=== PATIENT | female | born 1955 | race Caucasian/White ===

== ENCOUNTER 2016-07-19 09:32 | Outpatient (CLI) | payer MEDICARE, OTHER | END 2016-07-19 09:33 | disposition home or self-care (01) | DX: L89.899 Pressure ulcer of other site, unspecified stage (principal); Z97.13 Presence of artificial right leg (complete) (partial) ==

== ENCOUNTER 2017-05-03 09:57 | Outpatient (CLI) | payer MEDICARE, OTHER | END 2017-05-03 09:58 | disposition home or self-care (01) | LOC: LAB.R 09:57 | PROVIDERS: ATTEND Nurse Practitioner Family | DX: R31.9 Hematuria, unspecified (principal) | CPT/HCPCS: 87086 ==

== ENCOUNTER 2017-05-03 13:40 | Outpatient (CLI) | payer MEDICARE, OTHER ==
[2017-05-03 17:50] LABS: BASOPHILS % (AUTO) 0.3 %; EOSINOPHILS % (AUTO) 0.4 %; HCT - HEMATOCRIT 39.9 % (37.0-47.0); HGB - HEMOGLOBIN 13.3 g/dL (12.0-16.0); LYMPHOCYTES # (AUTO) 1.1 10^3/uL (1.5-3.5); LYMPHOCYTES % (AUTO) 14.8 %; MEAN CORPUSCULAR HEMOGLOBIN 29.8 pg (27.0-31.0); MEAN CORPUSCULAR HGB CONC 33.2 g/dL (32.0-36.0); MEAN CORPUSCULAR VOLUME 89.5 fL (81.0-99.0); MEAN PLATELET VOLUME 8.8 fL (7.9-10.8); MONOCYTES # (AUTO) 0.4 10^3/uL (0.0-1.0); MONOCYTES % (AUTO) 5.1 %; NEUTROPHILS # (AUTO) 6.2 10^3/uL (1.5-6.6); NEUTROPHILS % (AUTO) 79.4 %; RED BLOOD COUNT 4.45 10^6/uL (4.20-5.40); RED CELL DISTRIBUTION WIDTH 13.2 % (12.0-15.0); UNCORRECTED WHITE BLOOD COUNT 7.8 x10^3/uL; WHITE BLOOD COUNT 7.8 x10^3/uL (4.8-10.8)
[2017-05-03 18:02] LABS: ALBUMIN/GLOBULIN RATIO 1.5 (1.0-2.2); BILIRUBIN,TOTAL 1.5 mg/dL (0.2-1.0); BUN - BLOOD UREA NITROGEN 16 mg/dL (6-20); CALCIUM 9.1 mg/dL (8.5-10.3); CARBON DIOXIDE - CO2 26 mmol/L (21-32); CHLORIDE 103 mmol/L (101-111); CREATININE 0.6 mg/dL (0.4-1.0); GFR - MDRD 101 (>89); GLUCOSE 119 mg/dL (70-100); SODIUM 138 mmol/L (135-145); TOTAL PROTEIN 7.2 g/dL (6.7-8.2)
== END 2017-05-03 13:41 | disposition home or self-care (01) ==
LOC: LAB.F 13:40
PROVIDERS: ATTEND Nurse Practitioner Family
DX: R31.9 Hematuria, unspecified (principal)
CPT/HCPCS: 36415; 80053; 84443; 85025; 87086

== ENCOUNTER 2017-08-15 10:38 | Outpatient (CLI) | payer MEDICARE, OTHER ==
--- NOTE | 2017-08-15 12:51 | XRAY Report ---
RIGHT HIP AND PELVIS: 08/15/2017 CLINICAL INDICATION: Low back pain, right leg prosthesis. FINDINGS: Frontal view of the hips and pelvis and frogleg lateral view of the right hip demonstrate mild right hip osteoarthritis. Postoperative changes of right above-knee amputation are noted, with skin clips present in the soft tissues. There is no evidence of acute fracture or dislocation. IMPRESSION: MILD OSTEOARTHRITIS. TD: 08/15/2017 12:50
== END 2017-08-15 10:39 | disposition home or self-care (01) ==
LOC: DI.S 10:38
PROVIDERS: ATTEND Nurse Practitioner Family
DX: M16.11 Unilateral primary osteoarthritis, right hip (principal); Z89.611 Acquired absence of right leg above knee

== ENCOUNTER 2017-11-18 23:19 | Emergency (ER) | END 2017-11-19 01:47 | disposition home or self-care (01) ==

== ENCOUNTER 2018-01-09 13:27 | Outpatient (CLI) | payer MEDICARE, OTHER ==
--- NOTE | 2018-01-09 17:39 | XRAY Report ---
Procedure Date: 01/09/2018 Accession Number: [id number] / [id number] Procedure: XR - Lumbar Spine 2 View CPT Code: FULL RESULT: EXAM: LUMBOSACRAL SPINE RADIOGRAPHY EXAM DATE: 01/09/2018 02:24 PM. CLINICAL HISTORY: Back pain, lumbar with radiculopathy. COMPARISONS: None. TECHNIQUE: 2 views. FINDINGS: Alignment: 5 mm degenerative anterior subluxation L5 on S1. Accentuation of the lumbar lordosis. Bones: Five ebz-smu-avfalks lumbar vertebral bodies are present. No fractures or bone lesions. Disks: Slight narrowing of the L4-L5 and L5-S1 disks without bony reactive changes. Facets: Marked degenerative changes at the L4-L5 and L5-S1 facets bilaterally. Sacroiliac Joints: Unremarkable. Soft Tissues: Normal. The visualized bowel gas pattern is normal. IMPRESSION: 1. Mild degenerative disk disease L4-L5 with marked degenerative changes at the facets. 2. Grade 1 degenerative anterior subluxation L5-S1. RADIA
== END 2018-01-09 13:28 | disposition home or self-care (01) ==
LOC: DI 13:27
PROVIDERS: ATTEND Physician Assistant Medical
DX: M54.16 Radiculopathy, lumbar region (principal)
CPT/HCPCS: 72100

== ENCOUNTER 2018-02-09 17:22 | Outpatient (CLI) | payer MEDICARE, OTHER ==
--- NOTE | 2018-02-10 17:01 | MRI Report ---
Reason: DEGENERATIVE JOINT DISEASE OF SPINAL FACET JOINT, Procedure Date: 02/09/2018 Accession Number: [id number] / [id number] Procedure: MRI - Lumbar Spine W/O CPT Code: FULL RESULT: EXAM: MRI LUMBAR SPINE WITHOUT CONTRAST EXAM DATE: 02/09/2018 06:02 PM. CLINICAL HISTORY: Degenerative joint disease of spinal facet joint. COMPARISON: 01/09/2018 radiographs. TECHNIQUE: Multiplanar, multisequence T1-weighted and fluid-sensitive sequences of the lumbar spine from T12 to S1 without contrast. Other: None. FINDINGS: Spinal Canal: The conus terminates at L1. The conus medullaris and cauda equina are unremarkable. Alignment: No scoliosis or spondylolisthesis. Bone Marrow: Five zae-dzc-fdszudt lumbar vertebral bodies are assumed. No fractures. Benign hemangiomas in the T12, T11, L2, and L4 vertebral bodies. Disk Levels/Facets: All visualized disks are desiccated from the lower thoracic spine to L5. T9-T10: Moderate disk height loss is present. T10-T11: Unremarkable. T11-T12: A minimal posterior disk protrusion has no neurologic consequence. T12-L1: Unremarkable. L1-L2: Unremarkable. L2-L3: Unremarkable. L3-L4: A minimal posterior disk protrusion causes minimal spinal canal and bilateral foraminal narrowing. L4-L5: Moderate disk height loss is present. A mild posterior disk protrusion causes minimal spinal canal and mild bilateral foraminal narrowing. L5-S1: Moderate bilateral facet osteoarthritis has no neurologic consequence. Musculature: Normal. No edema or fatty atrophy. Other: The partially visualized retroperitoneum is unremarkable. IMPRESSION: 1. Multiple benign hemangiomas. 2. Mild bilateral foraminal narrowing at L4-L5 due to disk protrusions. Comment: The following findings are so common in adults without low back pain that while we report their presence, they must be interpreted with caution and in the context of the clinical situation. (Reference Brendenvik et al, Spine 2001) Prevalence of findings in patients without low back pain: Disk degeneration (any evidence): 92% Disk desiccation/T2 signal loss: 83% Disk height loss: 56% Disk bulge: 64% Disk protrusion: 32% Annular tear/high intensity zone: 38% RADIA
== END 2018-02-09 17:23 | disposition home or self-care (01) ==
LOC: DI 17:22
PROVIDERS: ATTEND Physician Assistant Medical
DX: M51.26 Other intervertebral disc displacement, lumbar region (principal); M51.36 Other intervertebral disc degeneration, lumbar region; M51.24 Other intervertebral disc displacement, thoracic region; M47.897 Other spondylosis, lumbosacral region; M48.061 Spinal stenosis, lumbar region without neurogenic claudication
CPT/HCPCS: 72148

== ENCOUNTER 2018-05-26 19:41 | Emergency (ER) | payer MEDICARE, OTHER ==
[2018-05-26 19:49] VITALS: BP 128/78
[2018-05-26] MEDS ORDERED: oxyCODONE/ACET 5/325 Prepack 4 PO STA (20:13)
[2018-05-26] MEDS ORDERED: GABAPENTIN 100 MG CAPSULE PO STA (20:13)
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
== END 2018-05-26 20:31 | disposition home or self-care (01) ==
LOC: ED 19:41
DX: T87.89 Other complications of amputation stump (principal); G57.91 Unspecified mononeuropathy of right lower limb; Y83.5 Amputation of limb(s) as the cause of abnormal reaction of the patient, or of later complication, without mention of misadventure at the time of the procedure
CPT/HCPCS: 99283; A9270

== ENCOUNTER 2018-09-18 16:10 | Outpatient (CLI) | payer MEDICARE, OTHER ==
[2018-09-18] MEDS ORDERED: GADOBUTROL 7.5 MMOL/7.5 ML VIAL ONE (17:38)
[2018-09-18] MEDS: GADOBUTROL 7.5 MMOL/7.5 ML VIAL IVP ONE (18:14)
--- NOTE | 2018-09-19 11:48 | MRI Report ---
Reason: NEUROMA OF RIGHT LEG, NEUROPATHIC PAIN Procedure Date: 09/18/2018 Accession Number: [id number] / [id number] Procedure: MRI - Femur/Thigh RT W/WO CPT Code: FULL RESULT: EXAM: RIGHT FEMUR/THIGH MRI WITHOUT AND WITH CONTRAST EXAM DATE: 09/18/2018 04:39 PM. CLINICAL HISTORY: Neuroma of right leg, neuropathic pain. COMPARISON: FEMUR 2V RT 11/19/2017 12:08 AM. TECHNIQUE: Multiplanar, multisequence T1-weighted and fluid-sensitive sequences of the thigh before and after administration of intravenous contrast. IV contrast: 4.5 cc Gadavist. Other: None. FINDINGS: Bones: Postsurgical changes of amputation at the level of the proximal femoral diaphysis. I have magnetic susceptibility artifact at the bone stump. No significant marrow edema. Trace amount of contrast enhancement adjacent to the stump. No evidence of osteomyelitis or abscess. Soft tissues: Associated muscle deformities and atrophy. Magnetic susceptibility artifact. No discrete enhancing masses are identified. IMPRESSION: 1. Amputation at the level of the proximal femoral diaphysis. 2. No evidence of cellulitis, abscess or osteomyelitis. 3. No soft tissue masses or abnormal contrast enhancement identified. RADIA
== END 2018-09-18 16:11 | disposition home or self-care (01) ==
LOC: DI 16:10
PROVIDERS: ATTEND Physical Medicine & Rehabilitation
DX: Z89.611 Acquired absence of right leg above knee (principal); D36.13 Benign neoplasm of peripheral nerves and autonomic nervous system of lower limb, including hip; M79.2 Neuralgia and neuritis, unspecified; R52 Pain, unspecified
CPT/HCPCS: 73720; A9585

== ENCOUNTER 2020-03-31 11:18 | Outpatient (CLI) | payer MEDICARE, OTHER ==
[2020-03-31 14:40] LABS: BASOPHILS % (AUTO) 0.8 %; EOSINOPHILS # (AUTO) 0.1 10^3/uL (0.0-0.7); EOSINOPHILS % (AUTO) 1.7 %; HGB - HEMOGLOBIN 13.8 g/dL (12.0-16.0); LYMPHOCYTES # (AUTO) 1.3 10^3/uL (1.5-3.5); LYMPHOCYTES % (AUTO) 36.5 %; MEAN CORPUSCULAR HEMOGLOBIN 29.2 pg (27.0-31.0); MEAN CORPUSCULAR HGB CONC 32.5 g/dL (32.0-36.0); MEAN CORPUSCULAR VOLUME 89.8 fL (81.0-99.0); MEAN PLATELET VOLUME 9.8 fL (7.9-10.8); MONOCYTES # (AUTO) 0.3 10^3/uL (0.0-1.0); MONOCYTES % (AUTO) 7.7 %; NEUTROPHILS # (AUTO) 1.9 10^3/uL (1.5-6.6); PLT - PLATELET COUNT 294 10^3/uL (130-450); RED BLOOD COUNT 4.72 10^6/uL (4.20-5.40); RED CELL DISTRIBUTION WIDTH 13.2 % (12.0-15.0); WHITE BLOOD COUNT 3.6 x10^3/uL (4.8-10.8)
[2020-03-31 15:00] LABS: ALBUMIN 4.5 g/dL (3.2-5.5); ALBUMIN/GLOBULIN RATIO 1.5 (1.0-2.2); BILIRUBIN,TOTAL 1.9 mg/dL (0.2-1.0); CALCIUM 9.8 mg/dL (8.5-10.3); CREATININE 0.6 mg/dL (0.4-1.0); TOTAL PROTEIN 7.6 g/dL (6.7-8.2)
== END 2020-03-31 11:19 | disposition home or self-care (01) ==
LOC: LAB.S 11:18
PROVIDERS: ATTEND Internal Medicine
DX: R11.2 Nausea with vomiting, unspecified (principal); L65.9 Nonscarring hair loss, unspecified; R31.9 Hematuria, unspecified
CPT/HCPCS: 36415; 80053; 82728; 84443; 85025

== ENCOUNTER 2020-08-05 09:57 | Outpatient (CLI) | payer MEDICARE, OTHER ==
--- NOTE | 2020-08-06 13:27 | Mammography Report ---
BILATERAL DIGITAL SCREENING MAMMOGRAM 3D/2D WITH EXAGGERATED CC: 08/05/2020 CLINICAL: Routine screening. Comparison is made to exams dated: 06/12/2013 mammogram and 06/25/2009 mammogram - [facility]. The tissue of both breasts is heterogeneously dense. This may lower the sensitivity of ma mmography. There is a benign calcification in both breasts. No significant masses, calcifications, or other findings are seen in either breast. There has been no significant interval change. IMPRESSION: BENIGN There is no mammographic evidence of malignancy. A 1 year screening mammogram is recommended. This exam was interpreted at Station ID: [id number]. NOTE: For mammograms, a report in lay terms will be sent to the patient. Approximately 15% of breast malignancies will not be visualized mammographically. In the management of a palpable breast mass, a negative mammogram must not discourage biopsy of a clinically suspicious lesion. Electronically Signed By: Jay Lackey M.D. ddp/penrad:08/05/2020 10:44:41 ACR BI-RADS Category 2: Benign Finding(s) 3342F PARENCHYMAL PATTERN: (D) - The breast(s) demonstrate(s) heterogeneously dense fibroglandular parenchy ma. BI-RADS CATEGORY: (2) - 2 RECOMMENDATION: (ANNUAL) - Recommend routine annual screening mammography. [id number] 1 year screening LATERALITY: (B)
== END 2020-08-05 09:58 | disposition home or self-care (01) ==
LOC: DI.S 09:57
PROVIDERS: ATTEND Internal Medicine
DX: Z12.31 Encounter for screening mammogram for malignant neoplasm of breast (principal)

== ENCOUNTER 2020-11-17 11:24 | Day surgery (SDC) | payer MEDICARE, OTHER ==
[2020-11-17] MEDS ORDERED: LACTATED RINGERS 1,000 ML IV ONE ×2 (12:02→13:30)
--- NOTE | 2020-11-17 12:16 | ANESTHESIA ---
Pre-Anesthesia VS, & Labs - Diagnosis family hx of colon CA - Procedure Colonoscopy Vital Signs: Temp Pulse Resp BP Pulse Ox 36.9 C 73 18 118/82 H 100 11/17/20 11:44 11/17/20 11:44 11/17/20 11:44 11/17/20 11:44 11/17/20 11:44 Height: 5 ft 3 in Weight (kg): 49 kg Body Mass Index: 19.1 BMI Classification: Healthy weight - NPO >8 hours - Is Patient ?: No Home Medications and Allergies Home Medications: Ambulatory Orders Acetaminophen [Tylenol] 325 mg PO DAILY 11/17/20 Duloxetine HCl 60 mg PO DAILY 10/31/19 Acetaminophen [Tylenol] 325 mg PO DAILY 11/17/20 Allergies/Adverse Reactions: Allergies Allergy/AdvReac Type Severity Reaction Status Date / Time No Known Drug Allergies Allergy Verified 11/17/20 12:03 Anes History & Medical History - Anesthetic History Anesthesia Complications: reports: No previous complications Family history of Anesthesia Complications: Denies Family history of Malignant Hyperthermia: Denies - Medical History Cardiovascular: reports: None Pulmonary: reports: None Gastrointestinal: reports: None Urinary: reports: None Neuro: reports: None Musculoskeletal: reports: Other Endocrine/Autoimmune: reports: None Blood Disorders: reports: None Skin: reports: None Smoking Status: Never smoker - Surgical History General: reports: Bowel surgery, Colonoscopy, Other Orthopedic: reports: Amputation, Other Dermatologic: reports: Skin grafts Exam General: Alert, Oriented x3, Cooperative Dental: WNL Mouth Openin Fingerbreadth Mallampati classification: I Thyromental Distance: 4-6 cm Respiratory: Lungs clear Cardiovascular: Regular rate Plan Anesthesia Type: Total IV Consent for Procedure(s) Verified and Reviewed: Yes Code Status: Attempt Resuscitation ASA classification: 2-Mild systemic disease Is this case an emergency?: No
[2020-11-17] MEDS ORDERED: LIDOCAINE-MPF 2% 5 ML VIAL ONE (12:46)
[2020-11-17] MEDS ORDERED: PROPOFOL 200 MG/20 ML VIAL IVP ONE ×2 (12:46→12:48)
[2020-11-17 13:53] VITALS: BP 107/57
--- NOTE | 2020-11-17 14:12 | ANESTHESIA POST OP EVALUATION ---
Anesthesia Post Eval - Post Anesthesia Eval Vitals: Last Vital Signs Temp 36.0 C L 11/17/20 13:52 Pulse 70 11/17/20 13:52 Resp 16 11/17/20 13:52 BP 107/57 L 11/17/20 13:52 Pulse Ox 94 11/17/20 13:52 CV Function Including HR & BP: Stable Pain Control: Satisfactory Nausea & Vomiting: Negative Mental Status: Baseline Respiratory Status: Airway Patent Hydration Status: Satisfactory Anesthesia Complications: None
== END 2020-11-17 11:25 | disposition home or self-care (01) ==
LOC: SDS 11:24
PROVIDERS: ATTEND Surgery
DX: Z12.11 Encounter for screening for malignant neoplasm of colon (principal); K57.30 Diverticulosis of large intestine without perforation or abscess without bleeding; K64.8 Other hemorrhoids; K64.4 Residual hemorrhoidal skin tags; Z80.0 Family history of malignant neoplasm of digestive organs; Z92.83 Personal history of failed moderate sedation; Z86.010 Personal history of colon polyps
CPT/HCPCS: G0105; J7120

== ENCOUNTER 2020-11-17 19:53 | Inpatient (IN) | payer MEDICARE, OTHER ==
[2020-11-17] MEDS ORDERED: SODIUM CHLORIDE 0.9% 1,000 ML IV STA ×2 (20:40→22:39)
[2020-11-17] MEDS ORDERED: HYDROmorphone 1 MG/ML CARPUJECT IVP STA (20:40)
[2020-11-17 20:43] LABS: BASOPHILS % (AUTO) 0.2 %; EOSINOPHILS % (AUTO) 2.4 %; HCT - HEMATOCRIT 37.7 % (37.0-47.0); HGB - HEMOGLOBIN 13.5 g/dL (12.0-16.0); LYMPHOCYTES % (AUTO) 5.3 %; MEAN CORPUSCULAR HEMOGLOBIN 31.5 pg (27.0-31.0); MEAN CORPUSCULAR HGB CONC 35.8 g/dL (32.0-36.0); MEAN CORPUSCULAR VOLUME 87.9 fL (81.0-99.0); MEAN PLATELET VOLUME 9.3 fL (7.9-10.8); MONOCYTES % (AUTO) 4.5 %; NEUTROPHILS % (AUTO) 87.3 %; PLT - PLATELET COUNT 282 10^3/uL (130-450); RED BLOOD COUNT 4.29 10^6/uL (4.20-5.40); WHITE BLOOD COUNT 9.8 x10^3/uL (4.8-10.8)
[2020-11-17] MEDS ORDERED: ONDANSETRON 4 MG/2 ML VIAL IVP STA (20:48)
[2020-11-17] MEDS ORDERED: IOVERSOL 320 100 ML VIAL IVP ONE (20:50)
[2020-11-17] MEDS ORDERED: ONDANSETRON 4 MG/2 ML VIAL ONE (20:51)
[2020-11-17 20:54] LABS: ABNORMAL LYMPHS % (MANUAL) 0 %; SLIDE REVIEW? Indicated
[2020-11-17 20:56] LABS: ALBUMIN 4.6 g/dL (3.2-5.5); ALBUMIN/GLOBULIN RATIO 1.8 (1.0-2.2); BILIRUBIN,TOTAL 2.2 mg/dL (0.2-1.0); CALCIUM 9.9 mg/dL (8.5-10.3); CREATININE 0.6 mg/dL (0.4-1.0); POTASSIUM 2.9 mmol/L (3.5-5.0); TOTAL PROTEIN 7.1 g/dL (6.7-8.2)
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
[2020-11-17 21:26] LABS: BAND NEUTROPHILS % (MANUAL) 8 %; EOSINOPHILS # (MANUAL) 0.2 10^3/uL (0-0.7); LYMPHOCYTES # (MANUAL) 0.4 10^3/uL (1.5-3.5); LYMPHOCYTES % (MANUAL) 4 %; MONOCYTES # (MANUAL) 0.4 10^3/uL (0.0-1.0); NEUTROPHILS # (MANUAL) 8.8 10^3/uL (1.5-6.6)
[2020-11-17 21:34] LABS: DIFFERENTIAL COMMENT MANUAL DIFFERENTIAL; PLATELET ESTIMATE, MANUAL NORMAL (130-450,000) (NORMAL); PLATELET MORPHOLOGY NORMAL APPEARANCE (NORMAL); RBC MORPHOLOGY (MULTIPLE) NORMAL APPEARANCE (NORMAL); WBC MORPHOLOGY (MULTIPLE) 2+ TOXIC GRANULATION (NORMAL)
[2020-11-17] MEDS: IOVERSOL 320 100 ML VIAL IVP ONE (21:50)
[2020-11-17 22:00] LABS: BILIRUBIN,URINE NEGATIVE (NEGATIVE); GLUCOSE, URINE (UA) NEGATIVE (NEGATIVE); KETONES,URINE (UA) 15 mg/dL (NEGATIVE); LEUKOCYTE ESTERASE, URINE NEGATIVE (NEGATIVE); NITRITE,URINE NEGATIVE (NEGATIVE); OCCULT BLOOD,URINE NEGATIVE (NEGATIVE); PROTEIN,URINE NEGATIVE (NEGATIVE); UROBILINOGEN,URINE 0.2 (NORMAL) E.U./dL (NORMAL)
[2020-11-17 22:04] LABS: CLARITY,URINE HAZY (CLEAR)
[2020-11-17 22:06] LABS: AMORPHOUS SEDIMENT,UR Rare /LPF; BACTERIA,URINE None Seen /HPF (None Seen); RBC,URINE None Seen /HPF (0-5); SQUAMOUS EPITHELIAL CELL,UR NONE SEEN (<= Few); WBC,URINE 0-3 /HPF (0-5)
--- NOTE | 2020-11-17 22:15 | CT Report ---
PROCEDURE: Abdomen/Pelvis W INDICATIONS: lower abdominla pain after colonoscopy CONTRAST: IV CONTRAST: Optiray 320 ml: 100 PO CONTRAST: *NO PO CONTRAST TECHNIQUE: After the administration of IV contrast, 5 mm thick sections acquired from the diaphragms to the symp hysis. 5 mm thick coronal and sagittal reformats were acquired. For radiation dose reduction, the f ollowing was used: automated exposure control, adjustment of mA and/or kV according to patient size. COMPARISON: CT abdomen pelvis 11/02/2019 FINDINGS: Image quality: Excellent. ABDOMEN: Lung bases: Lung bases are clear. Heart size is normal. Solid organs: Liver and spleen are normal in size and enhancement. Gallbladder is unremarkable Surendra iary system is non dilated. Pancreas enhances normally. No adrenal nodules. Kidneys demonstrate no rmal size and enhancement, without hydronephrosis. Peritoneum and bowel: Bowel loops are nonobstructive. There is mild scattered free fluid within the dependent pelvis. There is no fluid or inflammatory change within the hernia. Bowel loops within the lower pelvis are collapsed. No free air. Nodes and vessels: No retroperitoneal or mesenteric adenopathy by size criteria. Aorta and inferior vena cava are normal in size. Miscellaneous: Prominently dilated bowel containing ventral hernia with rectus diastases measuring ap proximately 8.4 cm. It is noted on prior exam, ventral hernia was fat-containing only. PELVIS: Genitourinary: Bladder wall thickness is normal. Miscellaneous: No inguinal hernias or adenopathy. Bones: No suspicious bony lesions. No vertebral body compression fractures. IMPRESSION: 1. Interval development of bowel containing ventral hernia with significantly dilated loop of bowel. There is no inflammatory change or fluid within the hernia/adjacent to the herniated bowel loop. Rec ommend correlation to viability to reduce hernia as incarceration cannot be definitively excluded giv en dilated loop of bowel. Reviewed by: Rhina Balderrama MD on 11/17/2020 10:14 PM PDT Approved by: Rhina Balderrama MD on 11/17/2020 10:14 PM PDT Station ID: [id number]
[2020-11-17] MEDS: POTASSIUM CHLOR 10 MEQ/100 ML 10 MEQ/100 ML BAG IV SCH (22:40)
[2020-11-17 23:45] LABS: B. PARAPERTUSSIS- RESP PCR PAN NOT DETECTED; B. PERTUSSIS- RESP PCR PANEL NOT DETECTED; C. PNEUMONIAE- RESP PCR PANEL NOT DETECTED; CORONAVIRUS 229E-RESP PCR NOT DETECTED; CORONAVIRUS HKU1-RESP PCR NOT DETECTED; CORONAVIRUS NL63-RESP PCR NOT DETECTED; CORONAVIRUS OC43-RESP PCR NOT DETECTED; HUMAN METAPNEUMOVIRUS NOT DETECTED; INFLUENZA A- RESP PCR PANEL NOT DETECTED; INFLUENZA B - RESP PCR PANEL NOT DETECTED; M. PNEUMONIAE- RESP PCR PANEL NOT DETECTED; PARAINFLUENZA VIRUS 1 NOT DETECTED; PARAINFLUENZA VIRUS 2 NOT DETECTED; PARAINFLUENZA VIRUS 3 NOT DETECTED; PARAINFLUENZA VIRUS 4 NOT DETECTED; RHINOVIRUS/ENTEROVIRUS NOT DETECTED; RSV- RESP PCR PANEL NOT DETECTED; SARS-CoV-2 -RESP PCR PANEL NOT DETECTED
[2020-11-17] MEDS ORDERED: ONDANSETRON 4 MG/2 ML VIAL IVP PRN (23:53)
[2020-11-17] MEDS ORDERED: SODIUM CHLORIDE FLUSH 0.9% 10 ML SYRINGE IVP PRN (23:53)
[2020-11-18] MEDS: D5NS W/20 MEQ KCL 1,000 ML IV SCH ×3 (00:49→21:47)
[2020-11-18] MEDS: POTASSIUM CHLOR 10 MEQ/100 ML 10 MEQ/100 ML BAG IV SCH ×3 (00:49→03:45)
[2020-11-18] MEDS: methocarbamoL 500 MG TABLET PO SCH ×5 (00:54→23:53)
[2020-11-18] MEDS: SODIUM CHLORIDE FLUSH 0.9% 10 ML SYRINGE IVP SCH ×4 (02:18→23:59)
[2020-11-18] MEDS: PANTOPRAZOLE 40 MG VIAL IVP SCH (06:15)
[2020-11-18] MEDS ORDERED: PHENOL THROAT SPRAY 177 ML MM PRN (06:23)
--- NOTE | 2020-11-18 07:51 | PHARMACY PROGRESS NOTE ---
- Best Possible Medication History Admit Date and Time: 11/17/20 3519 Processed by: Nursing Medication History completed: Yes Patient Interview: Completed (MED REC COMPLETED BY NURSING) As the person ultimately responsible for medication therapy, providers are able to order a medication from an existing home medication list in [facility] via the "Reconcile Routine" prior to Confirmation of that medication by support group manager. Such practice is discouraged except when the physician, in their clinical judgment, deems that a medical need exists for a medication without regard to previous use.
--- NOTE | 2020-11-18 08:30 | XRAY Report ---
PROCEDURE: Chest for Line Placement INDICATIONS: Line placement NGT TECHNIQUE: One view of the chest was acquired. COMPARISON: CT abdomen/pelvis one day ago. This includes the lung bases FINDINGS: Surgical changes and devices: Esophagogastric tube extends into the gastric body and coils towards th e fundus. Side-port is below the EG junction.. Lungs and pleura: No pleural effusions or pneumothorax. Lungs are clear. Mediastinum: Mediastinal contours appear normal. Heart size is normal. Bones and chest wall: No suspicious bony lesions. Overlying soft tissues appear unremarkable. IMPRESSION: Esophagogastric tube positioning normal. Reviewed by: Leonardo Parkinson MD on 11/18/2020 8:28 AM PDT Approved by: Leonardo Parkinson MD on 11/18/2020 8:28 AM PDT Station ID: [id number]
[2020-11-18] MEDS: ENOXAPARIN 40 MG/0.4 ML SYRINGE SUBQ SCH (09:17)
[2020-11-18] MEDS: ACETAMINOPHEN 1,000 MG/100 ML 100 ML IV PRN (10:46)
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
--- NOTE | 2020-11-18 11:42 | OPERATIVE REPORT ---
Operative Report - General Admit Date: 11/17/20
[2020-11-18 11:49] LABS: BASOPHILS % (AUTO) 0.1 %; EOSINOPHILS % (AUTO) 1.9 %; HCT - HEMATOCRIT 38.7 % (37.0-47.0); HGB - HEMOGLOBIN 13.1 g/dL (12.0-16.0); LYMPHOCYTES % (AUTO) 10.9 %; MEAN CORPUSCULAR HEMOGLOBIN 31.1 pg (27.0-31.0); MEAN CORPUSCULAR HGB CONC 33.9 g/dL (32.0-36.0); MEAN CORPUSCULAR VOLUME 91.9 fL (81.0-99.0); MEAN PLATELET VOLUME 9.3 fL (7.9-10.8); MONOCYTES % (AUTO) 5.5 %; NEUTROPHILS % (AUTO) 81.5 %; PLT - PLATELET COUNT 234 10^3/uL (130-450); RED BLOOD COUNT 4.21 10^6/uL (4.20-5.40); RED CELL DISTRIBUTION WIDTH 12.7 % (12.0-15.0); WHITE BLOOD COUNT 7.3 x10^3/uL (4.8-10.8)
[2020-11-18 11:54] LABS: ABNORMAL LYMPHS % (MANUAL) 0 %
[2020-11-18 12:07] LABS: ALBUMIN 3.6 g/dL (3.2-5.5); ALBUMIN/GLOBULIN RATIO 1.5 (1.0-2.2); ALKALINE PHOSPHATASE 70 IU/L (42-121); ALT ALANINE AMINOTRANSFERASE 16 IU/L (10-60); AST ASPARTATE AMINOTRANSFERASE 20 IU/L (10-42); BUN - BLOOD UREA NITROGEN < 5 mg/dL (6-20); CALCIUM 9.1 mg/dL (8.5-10.3); CARBON DIOXIDE - CO2 19 mmol/L (21-32); CHLORIDE 106 mmol/L (101-111); CREATININE 0.4 mg/dL (0.4-1.0); GFR - MDRD 159 (>89); GLUCOSE 140 mg/dL (70-100); SODIUM 137 mmol/L (135-145)
[2020-11-18 12:26] LABS: BAND NEUTROPHILS % (MANUAL) 6 %; BASOPHILS # (MANUAL) 0.1 10^3/uL (0-0.1); BASOPHILS % (MANUAL) 1 %; DIFFERENTIAL COMMENT MANUAL DIFFERENTIAL; LYMPHOCYTES # (MANUAL) 0.7 10^3/uL (1.5-3.5); LYMPHOCYTES % (MANUAL) 9 %; NEUTROPHILS # (MANUAL) 6.6 10^3/uL (1.5-6.6); PLATELET ESTIMATE, MANUAL NORMAL (130-450,000) (NORMAL); PLATELET MORPHOLOGY NORMAL APPEARANCE (NORMAL); RBC MORPHOLOGY (MULTIPLE) NORMAL APPEARANCE (NORMAL); WBC MORPHOLOGY (MULTIPLE) NORMAL APPEARANCE (NORMAL)
[2020-11-18] MEDS ORDERED: IOVERSOL 320 100 ML VIAL IVP ONE (13:35)
[2020-11-18] MEDS ORDERED: IOPAMIDOL-300 50 ML VIAL ONE (13:35)
--- NOTE | 2020-11-18 16:23 | CT Report ---
PROCEDURE: Abdomen/Pelvis W INDICATIONS: evalute for resolution of sbo CONTRAST: IV CONTRAST: Optiray 320 ml: 100 PO CONTRAST: Isovue 300 ml50 TECHNIQUE: After the administration of intravenous and oral contrast, 5 mm thick sections acquired from the diap hragms to the symphysis. 5 mm thick coronal and sagittal reformats were acquired. For radiation dos e reduction, the following was used: automated exposure control, adjustment of mA and/or kV accordin g to patient size. COMPARISON: CT abdomen pelvis 11/17/2020, 11/02/19. FINDINGS: Image quality: Excellent. ABDOMEN: Lung bases: There is dependent atelectasis in the lung bases. Heart size is normal. A nasogastric tub e extends into the stomach. Solid organs: Evaluation of the liver demonstrates no focal hepatic lesions. Gallbladder appears wit hin normal limits without calcified gallstones. Biliary system is non dilated. The spleen is normal in size. Pancreas enhances normally without peripancreatic fat stranding or fluid collections. No ad renal nodules. Kidneys demonstrate no hydronephrosis. There is a right renal cyst redemonstrated. Peritoneum and bowel: There are scattered air-fluid levels throughout the small bowel without a focal transition point or definite abnormal dilatation to suggest obstruction. Oral contrast extends into the distal ileum. There is mild residual bowel wall thickening within the terminal ileum, decreased f rom the prior study compatible with a mild residual enteritis. There is also mild residual segmental wall thickening of the descending and sigmoid colon, also decreased from the prior study, suggestive of a resolving colitis. There is a small amount of intraperineal free fluid with mild peritoneal enha ncement. No free air. Nodes and vessels: No retroperitoneal or mesenteric adenopathy by size criteria. Aorta and inferior vena cava are normal in size. Miscellaneous: There is a widemouth midline ventral abdominal hernia redemonstrated measuring approxi mately 8.4 cm in transverse dimension and 11.4 cm in craniocaudal dimension. There is partial herniat ion of a few small bowel loops and a segment of the transverse colon. No evidence of associated bowel obstruction or strangulation. PELVIS: Genitourinary: Bladder wall thickness is normal. Miscellaneous: No inguinal hernias or adenopathy. There is a partially visualized amputation throug h the level of the proximal right femoral shaft. Associated asymmetric atrophy of the right lower ext remity and pelvic musculature are demonstrated. Bones: No suspicious bony lesions. No vertebral body compression fractures. IMPRESSION: 1. Wide mouth ventral abdominal hernia redemonstrated containing loops of small and large bowel. No e vidence of associated bowel obstruction or strangulation. 2. Decreased small bowel and distal colonic wall thickening compatible with a resolving enteritis and colitis. 3. Small amount of intraperitoneal free fluid is nonspecific but likely reactive. Reviewed by: Jay Lackey MD on 11/18/2020 4:22 PM PDT Approved by: Jay Lackey MD on 11/18/2020 4:22 PM PDT Station ID: [id number]
[2020-11-18] MEDS: HYDROmorphone 0.5 MG/0.5 ML SYRINGE IVP PRN ×3 (18:38→23:58)
[2020-11-18] MEDS: IOVERSOL 320 100 ML VIAL IVP ONE (19:18)
[2020-11-18] MEDS ORDERED: IOPAMIDOL-300 50 ML VIAL PO ONE (19:19)
[2020-11-19] MEDS ORDERED: CARBOXYMETHYLCELLULOSE OPHTH DROPS EACHEYE PRN (00:08)
[2020-11-19] MEDS: ACETAMINOPHEN 1,000 MG/100 ML 100 ML IV PRN ×3 (01:22→15:40)
[2020-11-19] MEDS: D5NS W/20 MEQ KCL 1,000 ML IV SCH ×3 (05:27→13:19)
[2020-11-19] MEDS: methocarbamoL 500 MG TABLET PO SCH ×2 (05:27→12:22)
[2020-11-19] MEDS: SODIUM CHLORIDE FLUSH 0.9% 10 ML SYRINGE IVP SCH ×2 (05:32→16:45)
[2020-11-19] MEDS: HYDROmorphone 0.5 MG/0.5 ML SYRINGE IVP PRN ×2 (05:32→13:17)
[2020-11-19] MEDS: PANTOPRAZOLE 40 MG VIAL IVP SCH (05:33)
[2020-11-19 05:35] LABS: BASOPHILS % (AUTO) 0.3 %; EOSINOPHILS % (AUTO) 0.4 %; HCT - HEMATOCRIT 33.6 % (37.0-47.0); HGB - HEMOGLOBIN 11.2 g/dL (12.0-16.0); LYMPHOCYTES # (AUTO) 0.9 10^3/uL (1.5-3.5); LYMPHOCYTES % (AUTO) 12.8 %; MEAN CORPUSCULAR HEMOGLOBIN 30.7 pg (27.0-31.0); MEAN CORPUSCULAR HGB CONC 33.3 g/dL (32.0-36.0); MEAN CORPUSCULAR VOLUME 92.1 fL (81.0-99.0); MEAN PLATELET VOLUME 9.8 fL (7.9-10.8); MONOCYTES # (AUTO) 0.4 10^3/uL (0.0-1.0); MONOCYTES % (AUTO) 5.8 %; NEUTROPHILS # (AUTO) 5.4 10^3/uL (1.5-6.6); NEUTROPHILS % (AUTO) 80.6 %; PLT - PLATELET COUNT 207 10^3/uL (130-450); RED BLOOD COUNT 3.65 10^6/uL (4.20-5.40); WHITE BLOOD COUNT 6.7 x10^3/uL (4.8-10.8)
[2020-11-19 05:46] LABS: ALBUMIN 3.1 g/dL (3.2-5.5); ALBUMIN/GLOBULIN RATIO 1.6 (1.0-2.2); ALKALINE PHOSPHATASE 62 IU/L (42-121); ALT ALANINE AMINOTRANSFERASE 13 IU/L (10-60); AST ASPARTATE AMINOTRANSFERASE 14 IU/L (10-42); BILIRUBIN,TOTAL 1.6 mg/dL (0.2-1.0); BUN - BLOOD UREA NITROGEN < 5 mg/dL (6-20); CALCIUM 8.1 mg/dL (8.5-10.3); CARBON DIOXIDE - CO2 23 mmol/L (21-32); CHLORIDE 107 mmol/L (101-111); CREATININE 0.4 mg/dL (0.4-1.0); GFR - MDRD 159 (>89); GLUCOSE 146 mg/dL (70-100); MAGNESIUM 1.8 mg/dL (1.7-2.8); PHOSPHORUS 1.9 mg/dL (2.5-4.6); POTASSIUM 3.6 mmol/L (3.5-5.0); SODIUM 135 mmol/L (135-145); TOTAL PROTEIN 5.1 g/dL (6.7-8.2)
[2020-11-19] MEDS: ENOXAPARIN 40 MG/0.4 ML SYRINGE SUBQ SCH (09:14)
[2020-11-19] MEDS ORDERED: polyethylene glycoL 3350 17 GM PACKET PO SCH (12:00)
[2020-11-19] MEDS ORDERED: SENNA 8.6 MG TABLET PO SCH (12:00)
[2020-11-19] MEDS ORDERED: DOCUSATE SODIUM 250 MG CAPSULE PO SCH (12:00)
--- NOTE | 2020-11-19 17:54 | Discharge Plan ---
Discharge Plan Problem Reviewed?: Yes Disposition: Home, Self Care Condition: Good Diet: Regular Activity Restrictions: Activity as Tolerated Shower Restrictions: Yes Driving Restrictions: Yes Care Goals: Return to ER for recurrent symptoms. Plan for elective hernia repair in the next month. No Smoking: If you smoke, Please STOP! Call for help. Follow-up with: Jimmy Man MD [Provider Admit Priv/Credential] -
[2020-11-20 08:30] VITALS: BP 120/75
--- NOTE | 2020-11-20 08:37 | PROVIDER PROGRESS NOTE ---
Progress Note Subjective 65-year-old male hospital day #2 for high-grade small bowel obstruction. Repeat CT obtained see results below. Patient overall feels much better. Concern for infraumbilical hernia as a possible recurrent source and eager for consideration of repair Objective Afebrile hemodynamically acceptable General Appearance: positive: No acute distress Eyes Bilateral: positive: Normal inspection ENT: positive: ENT inspection nml Neck: positive: Nml inspection Respiratory: positive: Chest non-tender, No respiratory distress, Breath sounds nml. negative: Wheezes, Rales, Rhonchi Cardiovascular: positive: Regular rate & rhythm Abdomen: positive: No distention, Other. negative: Guarding, Rebound; infraumbilical hernia reducible with no tenderness Extremities: positive: Non-tender, Full ROM, Nml appearance Neurologic/Psychiatric: positive: Oriented x3, CN's nml (2-12) Repeat CT abdomen pelvis Impression: 1. Widemouth ventral abdominal hernia redemonstrated containing loops of small and large bowel. No evidence of associated bowel obstruction strangulation. 2. Decreased small bowel and distal colonic wall thickening compatible with a resolving enteritis and colitis 3. Small amount of intraperitoneal free air is nonspecific but likely reactive: Impression/Plan 65-year-old female with history of trauma laparotomy remotely high-grade small bowel obstruction within the last year failing nonoperative management who underwent diagnostic laparoscopy and mini laparotomy. On table decompression. No bowel resection. Developed incisional infraumbilical hernia. Otherwise has had an overall significant improvement in quality of life. Equilibration of historically erratic bowel function. Positive flatus currently. Will remove NG tube. Will attempt trial of oral intake. With regard to infraumbilical hernia we can consider outpatient elective repair possibly laparoscopic intervention. More likely this will require an open laparotomy with adhesiolysis and retrorectus repair with possible component separation and mesh placement preperitoneal. As it relates to possible operative intervention, risk and benefits discussed. Patient was advised of the significant risks of heart attack stroke and fr om anesthesia as well as pulmonary embolism. These were amongst others. Moreover the patient was also advised of the risk of recurrent hernia and infectious complications as it relates to implanted mesh. Please note that voice recognition software was used to transcribe this note and inadvertent errors might persist in spite of review and editing. I am obliged to you for your attention. I am thankful to you for allowing me to participate with you in this care of this patient.
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
== END 2020-11-19 18:26 | disposition home or self-care (01) | DRG 395 ==
LOC: ED 19:53 → MS2 23:53 → OBSVTOIN 11-18 22:06
PROVIDERS: ADMIT Surgery; ATTEND Surgery
DX: K43.0 Incisional hernia with obstruction, without gangrene (principal); E87.1 Hypo-osmolality and hyponatremia; E87.6 Hypokalemia; K52.9 Noninfective gastroenteritis and colitis, unspecified; F32.9 Major depressive disorder, single episode, unspecified; Z12.11 Encounter for screening for malignant neoplasm of colon; K57.30 Diverticulosis of large intestine without perforation or abscess without bleeding; K64.8 Other hemorrhoids; K64.4 Residual hemorrhoidal skin tags; Z80.0 Family history of malignant neoplasm of digestive organs; Z92.83 Personal history of failed moderate sedation; Z86.010 Personal history of colon polyps
CPT/HCPCS: 36415; 71045; 74177; 80053; 81001; 83605; 83690; 83735; 84100; 85025; 87631; 96365; 96366; 96367; 96375; 96376; 99283; 99285; A9270; G0105; G0378; J0131; J1170; J1650; J7120; Q9967; 0202U; 81003; 87086

== ENCOUNTER 2021-07-29 11:23 | Inpatient (IN) | payer MEDICARE, OTHER ==
[~2021-07-29 11:23] MED LIST: KETOROLAC 0.45% OPHTH DROPS ONE
[2021-07-29] MEDS ORDERED: CEFAZOLIN SODIUM IN 0.9 % NACL 2 GM/50 ML BAG IV ONE (11:36)
[2021-07-29] MEDS ORDERED: LACTATED RINGERS 1,000 ML IV ONE ×2 (12:12→17:18)
--- NOTE | 2021-07-29 12:44 | ANESTHESIA ---
Pre-Anesthesia VS, & Labs - Diagnosis incisional hernia - Procedure open incisional hernia repair Vital Signs: Temp Pulse Resp BP Pulse Ox 36.9 C 70 12 131/86 H 100 07/29/21 11:48 07/29/21 11:48 07/29/21 11:48 07/29/21 11:48 07/29/21 11:48 Height: 5 ft 2.5 in Weight (kg): 49 kg Body Mass Index: 19.4 BMI Classification: Healthy weight - NPO >8 hours - Is Patient ?: No - Lab Results Lab results reviewed: Yes Home Medications and Allergies Duloxetine HCl 60 mg PO DAILY 10/31/19 Acetaminophen [Tylenol] 325 mg PO DAILY 11/17/20 Allergies/Adverse Reactions: Allergies Allergy/AdvReac Type Severity Reaction Status Date / Time No Known Drug Allergies Allergy Verified 11/17/20 20:01 Anes History & Medical History - Anesthetic History Anesthesia Complications: reports: Other-see comment (memory loss) Family history of Anesthesia Complications: Denies Family history of Malignant Hyperthermia: Denies - Medical History Cardiovascular: reports: None Pulmonary: reports: None Gastrointestinal: reports: Hemorrhoids, Other Urinary: reports: None Neuro: reports: Other (memory loss) Musculoskeletal: reports: Other Endocrine/Autoimmune: reports: None Blood Disorders: reports: None Skin: reports: None Smoking Status: Never smoker - Surgical History General: reports: Bowel surgery, Colonoscopy, Other Orthopedic: reports: Amputation, Other Dermatologic: reports: Skin grafts Exam General: Alert, Oriented x3, Cooperative, No acute distress Dental: Poor dentition Mouth Openin Fingerbreadth Neck Mobility: Normal Mallampati classification: II Plan Anesthesia Type: General, Transverse Abdominis Plane (TAP) Block Regional Block: Per Surgeon's request for Post Op pain control Consent for Procedure(s) Verified and Reviewed: Yes Code Status: Attempt Resuscitation ASA classification: 3-Severe systemic disease Is this case an emergency?: No
[2021-07-29] MEDS ORDERED: fentaNYL 100 MCG/2 ML VIAL ONE (14:07)
[2021-07-29] MEDS ORDERED: LIDOCAINE-MPF 2% 5 ML VIAL ONE (14:08)
[2021-07-29] MEDS ORDERED: PROPOFOL 200 MG/20 ML VIAL IVP ONE (14:08)
[2021-07-29] MEDS ORDERED: ONDANSETRON 4 MG/2 ML VIAL ONE (14:08)
[2021-07-29] MEDS ORDERED: DEXAMETHASONE 4 MG/ML VIAL ONE (14:08)
[2021-07-29] MEDS ORDERED: ROCURONIUM 50 MG/5 ML VIAL ONE (14:08)
[2021-07-29] MEDS ORDERED: METOCLOPRAMIDE 10 MG/2 ML VIAL IVP PRN (14:29)
[2021-07-29] MEDS ORDERED: fentaNYL 100 MCG/2 ML VIAL IVP PRN (14:29)
[2021-07-29] MEDS ORDERED: MORPHINE 2 MG/ML CARPUJECT IVP PRN (14:29)
[2021-07-29] MEDS ORDERED: NALOXONE 0.4 MG/ML VIAL IVP PRN (14:29)
[2021-07-29] MEDS ORDERED: ATROPINE ABBOJECT 1 MG/10 ML SYRINGE IVP PRN (14:29)
[2021-07-29] MEDS ORDERED: ONDANSETRON 4 MG/2 ML VIAL IVP PRN ×2 (14:29→17:21)
[2021-07-29] MEDS ORDERED: ePHEDrine 50 MG/ML VIAL IVP PRN (14:29)
[2021-07-29] MEDS ORDERED: BUPIVACAINE 0.25% PF 30 ML VIAL ONE ×2 (14:29→15:19)
[2021-07-29] MEDS ORDERED: LACTATED RINGERS 1,000 ML IV SCH (15:00)
[2021-07-29] MEDS ORDERED: BUPIVACAINE 0.25% PF 30 ML VIAL SUBQ ONE (15:24)
[2021-07-29] MEDS: LACTATED RINGERS 1,000 ML IV SCH (16:03)
[2021-07-29] MEDS ORDERED: SUGAMMADEX 200 MG/2 ML VIAL IVP ONE (16:38)
[2021-07-29] MEDS ORDERED: IBUPROFEN 400 MG TABLET PO PRN (17:21)
[2021-07-29] MEDS ORDERED: ONDANSETRON ODT 4 MG TABLET TL PRN (17:21)
[2021-07-29] MEDS ORDERED: ACETAMINOPHEN 325 MG TABLET PO PRN (17:21)
[2021-07-29] MEDS ORDERED: HYDROmorphone 0.5 MG/0.5 ML SYRINGE IVP PRN (17:21)
[2021-07-29] MEDS ORDERED: SODIUM CHLORIDE FLUSH 0.9% 10 ML SYRINGE IVP PRN (17:21)
[2021-07-29] MEDS: HYDROmorphone 0.5 MG/0.5 ML SYRINGE IVP PRN ×2 (17:31→17:40)
[2021-07-29] MEDS ORDERED: ACETAMINOPHEN 1,000 MG/100 ML 100 ML IV ONE ×2 (17:47→17:49)
[2021-07-29] MEDS: KETOROLAC 15 MG/ML VIAL IVP PRN (17:48)
--- NOTE | 2021-07-29 18:12 | ANESTHESIA POST OP EVALUATION ---
Anesthesia Post Eval - Post Anesthesia Eval Vitals: Last Vital Signs Temp 36.9 C 07/29/21 17:50 Pulse 91 07/29/21 18:05 Resp 14 07/29/21 18:05 BP 122/78 07/29/21 18:05 Pulse Ox 100 07/29/21 18:05 CV Function Including HR & BP: Stable Pain Control: Satisfactory Nausea & Vomiting: Negative Mental Status: Baseline Respiratory Status: Airway Patent Hydration Status: Satisfactory Anesthesia Complications: None
[2021-07-29] MEDS: FAMOTIDINE 20 MG TABLET PO SCH (21:26)
[2021-07-30] MEDS: LACTATED RINGERS 1,000 ML IV SCH ×2 (00:19→07:45)
[2021-07-30] MEDS: SODIUM CHLORIDE FLUSH 0.9% 10 ML SYRINGE IVP SCH ×3 (00:20→17:01)
--- NOTE | 2021-07-30 07:26 | OPERATIVE REPORT ---
Operative Report - General Admit Date: 07/29/21 Procedure Date: 07/29/21 Planned Procedure: open repair 8 x 14 cm incisional hernia Pre-Op Diagnosis: incisional hernia Procedure Performed: open repair incisional hernia with mesh Post Op Diagnosis: incisional hernia - Procedure Note Primary Surgeon: roman galvez Anesthesia Technique: General ET tube, Local Pathology: skin and sac removed. not sent Estimated Blood Loss (mL): 15 Drain/Tube Type: Other (none) Indications: huge painful incisional hernia Findings: as above 7 x 2.5 inch sepra mesh placed Complications: none - Other Other Information/Narrative: The patient was properly identified brought to the operating room and placed in supine position. General endotracheal anesthesia was induced. Fung catheter and sequential compression device placed. She was prepped and draped in a sterile fashion and given preoperative antibiotics. She had a very large proximately 8 cm wide by 14 cm tall incisional hernia fascial defect. She had a very wide scar. An elliptical incision measuring approximately 14 cm tall by 8 cm wide was made. Abdomen was opened sharply. Adhesions were taken down. The ellipse of skin was excised including subcutaneous tissue and hernia sac. Fascia was identified and retracted. Adhesions were further taken down. There were no injuries. 4 x 8 sepra mesh was cut down to approximately 2-1/2 inches wide by 7 inches tall. The mesh was secured with multiple interrupted 0 Ethibond sutures. Sutures were placed approximately 4 cm back from the fascial defect edge in all directions. Midline fascia was closed over the mesh with three-point interrupted 0 Ethibond sutures. The mesh lay in good position without undue tension. There are no apparent complications. Hemostasis was assured. Subcutaneous tissue was closed with multiple interrupted 2-0 Vicryl suture. Buried interrupted subdermal 3-0 Vicryl sutures were then placed. Skin was closed with a running 4-0 Monocryl subcuticular suture. Resting was applied. Tolerated the procedure very well.
[2021-07-30] MEDS: KETOROLAC 15 MG/ML VIAL IVP PRN ×2 (07:45→17:01)
--- NOTE | 2021-07-30 08:25 | PROVIDER PROGRESS NOTE ---
Subjective - Prog Note Date Prog Note Date: 07/30/21 - Subjective Pt reports feeling: No change (denies nausea) Objective - Vital Signs/Intake & Output Reviewed Vital Signs: Yes Vital Signs: Vital Signs x48h Temp Pulse Resp BP Pulse Ox 07/30/21 07:33 36.5 C 72 16 111/66 100 07/30/21 04:21 36.6 C 78 14 102/67 99 Intake & Output: Intake & Output 07/27/21 07/28/21 07/29/21 07/30/21 23:59 23:59 23:59 23:59 Intake Total 687 1570.000 Output Total 590 450 Balance 97 1120.000 - Objective General Appearance: positive: Alert Eyes Bilateral: positive: PERRL, EOMI ENT: positive: No signs of dehydration Respiratory: positive: No respiratory distress Abdomen: positive: Non-tender, No distention Neurologic/Psychiatric: positive: Oriented x3 Assessment/Plan - Problem List (1) Incisional hernia Impression: very large inciisional hernia and repair yesterday. ileus and difficulty with ambulation anticipated diet as tolerated continue holland today
[2021-07-30] MEDS: DULoxetine 30 MG CAPSULE PO SCH (08:37)
[2021-07-30] MEDS: FAMOTIDINE 20 MG TABLET PO SCH ×2 (08:37→21:01)
--- NOTE | 2021-07-30 10:47 | PHARMACY PROGRESS NOTE ---
- Best Possible Medication History Admit Date and Time: 07/29/21 1838 Processed by: Nursing Medication History completed: Yes As the person ultimately responsible for medication therapy, providers are able to order a medication from an existing home medication list in [facility] via the "Reconcile Routine" prior to Confirmation of that medication by senior administrator support. Such practice is discouraged except when the physician, in their clinical judgment, deems that a medical need exists for a medication without regard to previous use.
[2021-07-30] MEDS: oxyCODONE 5 MG TABLET PO PRN ×2 (11:30→17:45)
[2021-07-30] MEDS ORDERED: LACTATED RINGERS 1,000 ML IV SCH (12:04)
[2021-07-30] MEDS: HEPARIN 5,000 UNIT/ML VIAL SUBQ SCH (21:10)
[2021-07-31] MEDS: SODIUM CHLORIDE FLUSH 0.9% 10 ML SYRINGE IVP SCH ×2 (02:39→08:00)
[2021-07-31 07:56] VITALS: BP 121/74
[2021-07-31] MEDS: KETOROLAC 15 MG/ML VIAL IVP PRN (08:16)
[2021-07-31] MEDS: FAMOTIDINE 20 MG TABLET PO SCH (08:34)
[2021-07-31] MEDS: DULoxetine 30 MG CAPSULE PO SCH (08:35)
[2021-07-31] MEDS: HEPARIN 5,000 UNIT/ML VIAL SUBQ SCH (08:35)
[2021-07-31] MEDS ORDERED: polyethylene glycoL 3350 17 GM PACKET PO SCH (09:00)
--- NOTE | 2021-07-31 09:34 | PROVIDER PROGRESS NOTE ---
Subjective - General Admit Date: 07/29/21 Procedure Date: 07/29/21 Post Op Days: 2 Procedure Performed: ventral incisional hernia repair with mesh - Other Other Information/Narrative: NAEO. Tolerating diet. Holland still in. Was up a bit yesterday which hurt worse; pain otherwise controlled on PO pain meds. Passing flatus, no BMs. Objective - Patient Data Reviewed Vital Signs: Yes Vital Signs: Vital Signs x48h Temp Pulse Resp BP Pulse Ox 07/31/21 07:55 37.0 C 79 17 121/74 96 07/31/21 04:00 37.0 C 82 18 133/76 H 97 Weight: Weight 07/29/21 07/30/21 07/31/21 23:59 23:59 23:59 Weight (kg) 49 kg Intake & Output: Intake and Output Totals x24h 07/29/21 07/30/21 07/31/21 23:59 23:59 23:59 Intake Total 687 4205.833 390 Output Total 590 3175 1700 Balance 97 1030.833 -1310 - Current Medications Current Medications: Current Medications Generic Name Dose Route Start Last Admin Trade Name Freq PRN Reason Stop Dose Admin Acetaminophen 650 mg 07/29/21 17:21 07/31/21 04:03 Acetaminophen 325 Mg Tablet PO 650 mg Q4HR PRN Administration Pain 1 to 4 Duloxetine HCl 60 mg 07/30/21 09:00 07/31/21 08:35 Duloxetine 30 Mg Capsule PO 60 mg DAILY HALI Administration Famotidine 20 mg 07/29/21 21:00 07/31/21 08:34 Famotidine 20 Mg Tablet PO 20 mg BID HALI Administration Heparin Sodium (Porcine) 5,000 unit 07/30/21 21:00 07/31/21 08:35 Heparin 5,000 Unit/Ml Vial SUBQ 5,000 unit BID HALI Administration Ketorolac Tromethamine 15 mg 07/29/21 17:39 07/30/21 17:01 Ketorolac 15 Mg/Ml Vial IVP 15 mg Q6HR PRN Administration PAIN Oxycodone HCl 5 mg 07/29/21 17:21 07/30/21 17:45 Oxycodone 5 Mg Tablet PO 5 mg Q4HR PRN Administration Pain 5 to 7 Polyethylene Glycol 17 gm 07/31/21 09:00 07/31/21 08:35 Polyethylene Glycol 3350 17 Gm Packet PO 17 gm DAILY HALI Administration Sodium Chloride 10 ml 07/30/21 01:00 07/31/21 08:00 Sodium Chloride Flush 0.9% 10 Ml Syringe IVP 10 ml 0100,0900,1700 HALI Administration - Physical Exam Wound/Incisions: positive: Healing well General Appearance: positive: No acute distress Eyes Bilateral: positive: EOMI Respiratory: positive: Breath sounds nml Cardiovascular: positive: Regular rate & rhythm Abdomen: positive: Other (soft, non-distended, appropriately TTP, no rebound or guarding; incision CDI) Skin: positive: Warm, Dry Extremities: positive: No pedal edema, Other (hx traumatic amp RLE; LLE with good pedal pulses) Neurologic/Psychiatric: positive: Oriented x3, Mood/affect nml Impression/Plan - Problem List Problem List: S/p ventral hernia repair with mesh 07/29/[address] Alanis. Progressing well. - PO pain meds; IV available for breakthrough - gen diet, HLIV - bowel reg - d/c holland, void check - ordering PT/OT today (does not have prosthetic here but prefers not to use now because heavy) - abd binder - ppx: HSQ, pepcid Dispo: possibly home later today if pain controlled and clears PT/OT and is able to void Ralph Gama MD General Surgery
[2021-07-31] MEDS: oxyCODONE 5 MG TABLET PO PRN (11:04)
--- NOTE | 2021-07-31 11:32 | DISCHARGE SUMMARY ---
"Discharge Summary Admit Date: 07/29/21 Discharge Date: 07/31/21 Discharging Provider: Ralph Gama MD Code Status: Attempt Resuscitation Condition at Discharge: Good Discharge Disposition: 01 Home, Self Care - DIAGNOSES Admission Diagnoses: ventral incisional hernia Discharge Diagnoses with Status of Each Condition: ventral incisional hernia - resolved (s/p open ventral hernia repair with mesh) - HPI History of Present Illness: 66 yo F patient with a history of remote trauma laparotomy surgery, traumatic amputation RLE, small bowel obstruction at which time the patient necessitated urgent operative intervention for high-grade small bowel obstruction, and ventral incisional hernia. She presented for elective ventral incisional hernia repair. - CONSULTS | PROCEDURES Consultations: physical therapy Procedures: open ventral incisional hernia repair with mesh - HOSPITAL COURSE Hospital Course: On 07/29/21 pt underwent ventral incisional hernia repair with mesh. This was without complications. She was advanced to a general diet which she tolerated. She was transitioned from IV to PO pain meds with adequate pain control. She worked with physical therapy and was cleared for independent transfers and mobility. Her holland was removed POD2 and she voided; she was also passing flatus. On POD2 she was felt to be ready for discharge. She is to be discharged to home with her ; she should call [facility] to schedule a follow up appointment with Dr. Alanis for 2 weeks from discharge. - ALLERGIES Allergies/Adverse Reactions: Allergies Allergy/AdvReac Type Severity Reaction Status Date / Time No Known Drug Allergies Allergy Verified 07/29/21 15:19 - MEDICATIONS Home Medications: Ambulatory Orders Medication Instructions Recorded Confirmed Duloxetine HCl 60 mg PO DAILY 10/31/19 07/29/21 Acetaminophen [Tylenol] 325 mg PO DAILY 11/17/20 07/29/21 - PHYSICAL EXAM AT DISCHARGE General Appearance: positive: No acute distress Eyes Bilateral: positive: EOMI Respiratory: positive: Breath sounds nml Cardiovascular: positive: Regular rate & rhythm Peripheral Pulses: positive: 2+ Abdomen: positive: Other (soft, non-distended, appropriately TTP at midline incision; rest of abdomen non-tender, no rebound or guarding, incision CDI with steri-strips) Skin: positive: Warm, Dry Extremities: positive: Other (hx traumatic amputation of RLE; LLE without edema and good pedal pulses) Neurologic/Psychiatric: positive: Oriented x3, Mood/affect nml - FOLLOW UP Follow Up: [address] Alanis - TIME SPENT Time Spent in Discharge (Minutes): 30"
--- NOTE | 2021-07-31 11:45 | Discharge Plan ---
Discharge Plan Problem Reviewed?: Yes Disposition: Home, Self Care Condition: Good Prescriptions: oxyCODONE [Roxicodone] 5 mg PO Q6H PRN #20 tablet PRN Reason: Pain 5 to 7 Diet: Regular Activity Restrictions: no heavy lifting >10 lbs Shower Restrictions: Yes (no scrubbing incisions; may start tomorrow) Driving Restrictions: Yes (no driving while requiring narcotics) Assistance Devices: Crutches Weight Bearing: Full Weight Additional Instructions or Follow Up instructions: You are being discharged with a narcotic pain medication called oxycodone. You may supplement this medication with Tylenol and ibuprofen following dosing guidelines on their labels. You should not drive or drink alcohol on this medication. You should stay hydrated and consider taking a stool softener called docusate, as narcotics can cause constipation. You may shower tomorrow, no need to scrub incisions; the steri-strip dressings will fall off on their own. You should not bathe or soak incision until cleared by your surgeon. No heavy lifting/straining until cleared by your surgeon. You should call the hospital [facility] during business hours to schedule 2 week post-op follow up with Dr. Alanis. If you experience worsening pain, pus from incisions, redness at incisions, fevers, chills or other concerning symptoms please return to the emergency department for evaluation. No Smoking: If you smoke, Please STOP! Call for help. Follow-up with: Elmer Alanis MD [Provider Admit Priv/Credential] -
[2021-07-31] MEDS ORDERED: IBUPROFEN 400 MG TABLET PO PRN (17:21)
== END 2021-07-31 13:45 | disposition home or self-care (01) | DRG 395 ==
LOC: SDS 11:23 → MS2 18:38
PROVIDERS: ADMIT Surgery; ATTEND Surgery
PROC: 0WUF0JZ Supplement Abdominal Wall with Synthetic Substitute, Open Approach (ICD-10-PCS; principal; 2021-07-29 12:45)
DX: K43.2 Incisional hernia without obstruction or gangrene (principal); Z89.611 Acquired absence of right leg above knee
CPT/HCPCS: 49560; 49568; 97161; A9270; J0131; J0690; J1170; J7120

== ENCOUNTER 2022-03-15 11:19 | Emergency (ER) | payer MEDICARE, OTHER ==
--- OUTSIDE RECORDS SUMMARY | 2022-03-15 11:34 | EXTERNAL MEDICAL SUMMARY RPT | Continuity of Care Document ---
:1955 Author Organization [facility] Address [address] [place] [address] Phone Allergies No information. Encounters No information. Functional Status No information. Immunizations No information. Medications No information. Problems No information. Procedures date description facility +0000 Visit Code Hold [facility] [place] [id number] Visit Code Hold [facility] Results/Labs No information. Social History date description facility [id number] Never smoker [facility] Vital Signs date measurement value units [id number]+0000 BMI BMI 22.03 kg/m2 [id number]+0000 BP_diastolic BP_diastolic 70 mm[H g] 57744670727123+0000 BP_systolic BP_systolic 112 mm[Hg] 47536588210266+0000 heart_rate heart_rate 77 /min 10990754479176+0000 height_metric height_metric 157.48 cm 98094870561164+0000 height_standard height_standard 62 in [id number]+0000 respiration_rate respiration_rate 12 /min 46006568849155+0000 temperature_metric temperature_metric 36.78 C [id number]+0000 temperature_standard temperature_standard 9 8.2 F [id number]+0000 weight_metric weight_metric 54.43 kg 90634218327304+0000 weight_standard weight_standard 120 lb [id number]+0000 BMI BMI 21.77 kg/m2 10966050422249+0000 BP_diastolic BP_diastolic 74 mm[H g] 86988745127873+0000 BP_systolic BP_systolic 100 mm[Hg] 13555230692418+0000 heart_rate heart_rate 79 /min 73568109614882+0000 height_metric height_metric 157.48 cm [id number]+0000 height_standard height_standard 62 in 74147593143039+0000 respiration_rate respiration_rate 13 /min [id number]+0000 temperature_metric temperature_metric 36.39 C +0000 temperature_standard temperature_standard 9 7.5 F +0000 weight_metric weight_metric 53.8 kg +0000 weight_standard weight_standard 118.6 lb
--- NOTE | 2022-03-15 12:56 | ED Physician Documentation ---
PD HPI LOWER EXT INJURY - Stated complaint Stated Complaint: R LEG PX - Chief complaint Chief Complaint: Ext Problem - History obtained from History obtained from: Patient - History of Present Illness PD HPI LOW EXT INJURY LOCATION: Right, Thigh (she has had pain at right stump scar tissue, which has increased in the past several weeks, very severe and continual the past week.) Type of injury: Other (she states her prosthesis fit has not changed and does not feel it is rubbing/pressuring badly. no fall nor impact to the stump. No signs of infection.). No: Fall, Twist Timing - onset: How many weeks ago (has had increasing pain for weeks. Has had some of it chronically.) Timing - duration: Weeks Timing - details: Gradual onset, Still present Worsened by: Palpating, Other (it hurts randomly without provocation. It is tender in focal area though.). No: Moving Associated symptoms: No: Weakness, Numbness, Swelling, Discolored Similar symptoms before: No diagnosis (presumed nerve cluster or scar tissue pain in the past. Did have "nerve burned" in the past which helped for some time.) Recently seen: Not recently seen Review of Systems Constitutional: denies: Fever, Chills Skin: denies: Rash, Lesions, Abrasion (s), Laceration (s) Neurologic: denies: Focal weakness, Numbness PD PAST MEDICAL HISTORY - Past Medical History Cardiovascular: None Respiratory: None Neuro: Other Endocrine/Autoimmune: None GI: Hemorrhoids, Other : None HEENT: None Psych: Depression Musculoskeletal: Other Derm: None - Past Surgical History Past Surgical History: Yes General: Bowel surgery, Colonoscopy, Other Ortho: Amputation, Other Derm: Skin grafts - Present Medications Home Medications: Ambulatory Orders Medication Instructions Recorded Confirmed Duloxetine HCl 60 mg PO DAILY 10/31/19 07/29/21 Acetaminophen [Tylenol] 325 mg PO DAILY 11/17/20 07/29/21 oxyCODONE [Roxicodone] 5 mg PO Q6H PRN #20 tablet 07/31/21 Acetaminophen [Acetaminophen Extra 500 mg PO QID PRN #50 tablet 03/15/22 Strength] Lidocaine Patch 5% [Lidoderm Patch] 1 patch TOP DAILY PRN #10 patch 03/15/22 Meloxicam [Mobic] 7.5 mg PO BID 10 Days #20 tablet 03/15/22 oxyCODONE [Roxicodone] 5 mg PO Q8H PRN #20 tablet 03/15/22 tiZANidine [Zanaflex] 4 mg PO Q8H PRN #25 tablet 03/15/22 - Allergies Allergies/Adverse Reactions: Allergies Allergy/AdvReac Type Severity Reaction Status Date / Time No Known Drug Allergies Allergy Verified 07/29/21 15:19 - Social History Does the pt smoke?: No Smoking Status: Never smoker Does the pt drink ETOH?: Yes Does the pt have substance abuse?: No - Immunizations Immunizations are current?: Yes - POLST Patient has POLST: No PD ED PE NORMAL - Vitals Vital signs reviewed: Yes - General General: Alert and oriented X 3, Well developed/nourished, Other (appears in pain with periodic waves of lancinating pain at stump during the interview. ) - Derm Derm: Normal color, Warm and dry, No rash - Extremities Extremities: Other (scar tissue healed at stump but lots of scar tissue. No redness/sores/signs of infection. focally tender at lateral aspect of end of thigh stump. ) - Neuro Neuro: Alert and oriented X 3, Normal speech Results - Vitals Vitals: Oxygen O2 Source [With Activity] Room air O2 Source Room air PD MEDICAL DECISION MAKING - ED course Complexity details: considered differential (tried local injection with marcaine and kenalog at the area of tenderness. Presume nerve cluster or scar tissue hurting. Defer to ortho specialist for other ideas. ), d/w patient Departure - Departure Disposition: 01 Home, Self Care Clinical Impression: Stump neuralgia Condition: Stable Record reviewed to determine appropriate education?: Yes Follow-Up: Adriana Sandoval ARNP [Primary Care Provider] - [facility] [Provider Group] Prescriptions: Acetaminophen [Acetaminophen Extra Strength] 500 mg PO QID PRN #50 tablet PRN Reason: Pain Lidocaine Patch 5% [Lidoderm Patch] 1 patch TOP DAILY PRN #10 patch PRN Reason: pain Meloxicam [Mobic] 7.5 mg PO BID 10 Days #20 tablet oxyCODONE [Roxicodone] 5 mg PO Q8H PRN #20 tablet PRN Reason: Pain tiZANidine [Zanaflex] 4 mg PO Q8H PRN #25 tablet PRN Reason: Spasms Comments: Continue with your current medications. Your pain is most likely some nerve irritation related to the scarring in the stump. However you do have some local tenderness to and there may be some bruising of the soft tissue underneath with inflammation. I did do an injection of a steroid medicine along with some numbing medicine into the area. This should hopefully have an effect over the next couple of days. Continue your current usual medicines. Add meloxicam anti-inflammatory twice daily with food for the next 7 to 10 days. Also add acetaminophen/Tylenol 500 mg 4 times daily. To that add oxycodone 3 times daily if needed for pain. You can continue the lidocaine patches as some added benefit is better than none. You can also try adding tizanidine muscle relaxant to see if there is some muscle spasm component. Follow-up with your primary care. You could also follow-up with the orthopedic clinic to see if they have other approaches to help with the pain. I transmitted prescriptions to [facility] in [place]. I am prescribing a short course of narcotic pain medication for you. These are potentially dangerous and addictive medications that should be used carefully. These medications may constipate you. Take an jjfs-jzf-ejrbjqx stool softener such as docusate twice daily with plenty of water while taking these medications. If you go 24 hours without a bowel movement, take hyre-oxu-zzullxm MiraLAX, per package instructions. Do not drink or drive while taking these medications. If you received narcotic or sedating medications while in the emergency department do not drive for 24 hours. Store this medication in a safe, secure place and out of reach of children. It is a violation of federal law to give or sell this medication to another person or to use in a manner other than prescribed. The ED will not refill narcotic prescriptions, including prescriptions lost or stolen. You can dispose of unwanted medications at the [facility]'s office or at several pharmacies such as [facility]. Discharge Date/Time: 03/15/22 14:46
[2022-03-15] MEDS ORDERED: HYDROmorphone 1 MG/ML CARPUJECT IM STA (13:34)
[2022-03-15] MEDS ORDERED: TRIAMCINOLONE 40 MG/ML VIAL MC STA (13:34)
[2022-03-15] MEDS ORDERED: KETOROLAC 30 MG/ML VIAL IM STA (13:34)
[2022-03-15 13:56] VITALS: BP 111/75
== END 2022-03-15 14:46 | disposition home or self-care (01) ==
LOC: ED 11:19
DX: T87.89 Other complications of amputation stump (principal)
CPT/HCPCS: 96372; 99283; 99284; J1170

== ENCOUNTER 2022-07-21 06:48 | Day surgery (SDC) | payer MEDICARE, OTHER ==
[~2022-07-21 06:48] MED LIST changes: +CYCLOPENTOLATE 1% OPHTH DROPS 2 ML ONE; +PHENYLEPHRINE 2.5% OPHTH 2 ML DROPS ONE; +PROPARACAINE 0.5% OPHTH DROPS 15 ML ONE
[2022-07-21] MEDS ORDERED: LACTATED RINGERS 1,000 ML IV ONE (07:20)
--- NOTE | 2022-07-21 07:40 | ANESTHESIA ---
Pre-Anesthesia VS, & Labs - Diagnosis R nuclear cataract - Procedure extraction R cataract w/IOL Vital Signs: Temp Pulse Resp BP Pulse Ox O2 Flow Rate 36.2 C L 71 16 113/71 99 07/21/22 07:28 07/21/22 07:28 07/21/22 07:28 07/21/22 07:28 07/21/22 07:28 Height: 5 ft 3 in Weight (kg): 52 kg Body Mass Index: 20.2 BMI Classification: Normal - NPO >8 hours - Is Patient ?: No - Lab Results Lab results reviewed: Yes Home Medications and Allergies Home Medications: Ambulatory Orders Amitriptyline [Elavil] 1 tab PO DAILY 07/20/22 Duloxetine HCl 60 mg PO DAILY 10/31/19 Acetaminophen [Tylenol] 325 mg PO PRN PRN 11/17/20 Amitriptyline [Elavil] 1 tab PO DAILY 07/20/22 Allergies/Adverse Reactions: Allergies Allergy/AdvReac Type Severity Reaction Status Date / Time No Known Drug Allergies Allergy Verified 07/20/22 12:19 Anes History & Medical History - Anesthetic History Anesthesia Complications: reports: No previous complications Family history of Anesthesia Complications: Denies Family history of Malignant Hyperthermia: Denies - Medical History Cardiovascular: reports: None Pulmonary: reports: None Gastrointestinal: reports: Hemorrhoids, Other Urinary: reports: None Neuro: reports: Other Musculoskeletal: reports: Other Endocrine/Autoimmune: reports: None Blood Disorders: reports: None Skin: reports: None Smoking Status: Never smoker - Surgical History General: reports: Bowel surgery, Colonoscopy, Other Orthopedic: reports: Amputation, Other Dermatologic: reports: Skin grafts Exam General: Alert, Oriented x3, Cooperative Dental: WNL Mouth Openin Fingerbreadth Neck Mobility: Normal Mallampati classification: II Thyromental Distance: 4-6 cm Respiratory: Lungs clear, Normal breath sounds, No respiratory distress Cardiovascular: Regular rate Neurological: Normal speech Mental/Cognitive Status: Alert/Oriented X3, Normal for patient Cognitive Status: Within normal limits Plan Anesthesia Type: MAC Consent for Procedure(s) Verified and Reviewed: Yes Code Status: Attempt Resuscitation ASA classification: 2-Mild systemic disease Is this case an emergency?: No
[2022-07-21] MEDS ORDERED: TIMOLOL 0.5% OPHTH DROPS ONE (08:20)
[2022-07-21] MEDS ORDERED: EPINEPHrine 1 MG/ML AMP ONE (08:20)
[2022-07-21] MEDS ORDERED: TRIAMCIN/MOXIFLOX OPHTHALMIC 0.6 ML VIAL IO ONE ×2 (08:20→08:44)
[2022-07-21] MEDS ORDERED: BRIMONIDINE 0.2% OPHTH DROPS 5 ML ONE (08:20)
[2022-07-21] MEDS ORDERED: BSS/LIDOCAINE/EPINEPHRINE 1 ML VIAL ONE (08:20)
[2022-07-21] MEDS ORDERED: MIDAZOLAM 2 MG/2 ML VIAL ONE (08:21)
[2022-07-21] MEDS ORDERED: VANCOMYCIN OPHTH (TOPICAL) 10 MG/ML SYRINGE ONE (08:21)
[2022-07-21] MEDS ORDERED: BRIMONIDINE 0.2% OPHTH DROPS 5 ML OPTH ONE (08:43)
[2022-07-21] MEDS ORDERED: BSS/LIDOCAINE/EPINEPHRINE 1 ML SYRINGE IO ONE (08:44)
[2022-07-21] MEDS ORDERED: TIMOLOL 0.5% OPHTH DROPS OPTH ONE (08:44)
[2022-07-21] MEDS ORDERED: EPINEPHrine 1 MG/ML AMP IR ONE (08:44)
[2022-07-21] MEDS ORDERED: VANCOMYCIN OPHTH (TOPICAL) 10 MG/ML SYRINGE TOP ONE (08:44)
[2022-07-21] MEDS ORDERED: PROPARACAINE 0.5% OPHTH DROPS 15 ML EACHEYE ONE (08:44)
[2022-07-21] MEDS ORDERED: LACTATED RINGERS 800 ML IV ONE (08:52)
--- NOTE | 2022-07-21 09:01 | OPERATIVE REPORT ---
Operative Report - Other Other Information/Narrative: Date of Surgery: 07/21/22 Preop Dx: Visually significant cataract right eye. This was the first cataract surgery. Postop Dx: Same Procedure: Phacoemulsification with posterior chamber intraocular lens implant right eye Surgeon: Dr. Rakan Escudero Anesthesia: Monitored anesthesia care Complications: None Operative Indications: This is a 67-year-old F with progressive vision loss in the right eye due to 3-4+ nuclear sclerotic cataract. Best corrected visual acuity was 20/40 with glare to 20/80 vision in the right eye. Indications for surgery were: - Overall decrease in vision - Difficulty seeing words on a computer screen - Difficulty reading - Difficulty seeing words, closed captions, or game scores on TV - Difficulty seeing street signs - Difficulty driving in low light or at night - Difficulty driving at night because of headlights from other vehicles - Difficulty with glare or bright lights in any situation The patient was consented at length concerning the risks and benefits of cataract surgery after which the patient expressed a desire to proceed with surgery. Operative Procedure: The patient was taken into OR#3 and placed under monitored anesthesia care. A surgical time-out was conducted confirming correct patient, correct procedure, and correct surgical site. The patient was given topical anesthesia and then prepped and draped in the usual sterile fashion. The eye was entered at the 6 and 3 oclock positions. Intracameral Shugarcaine was injected into the anterior chamber followed by a dispersive viscoelastic. A continuous-tear curvilinear capsulorhexis was performed. The nucleus was hydrodissected and phacoemulsified. The cortex was evacuated using automated infusion and aspiration. A cohesive viscoelastic was injected into the capsular bag and a 22.0 diopter intraocular lens was inserted into the bag. Infusion and aspiration were used to evacuate the viscoelastic materials from the eye. The wounds were hydrated and the eye inflated to physiologic pressure using balanced salt solution. Approximately 0.25ml of a mixture of triamcinolone and moxifloxacin was injected trans-sclerally into the vitreous in the inferotemporal quadrant using a 30 gauge cannula. An additional 0.25ml of a mixture of triamcinolone, and moxifloxacin was injected subconjunctivally in the superior quadrant for infection and inflammation prophylaxis. Wound integrity was checked with Weck-Sindy sponges. The patient was taken from the operating room in good condition and given post-op instructions.
[2022-07-21 09:17] VITALS: BP 109/80
--- NOTE | 2022-07-21 09:41 | ANESTHESIA POST OP EVALUATION ---
Anesthesia Post Eval - Post Anesthesia Eval Vitals: Last Vital Signs Temp 36.4 C L 07/21/22 09:16 Pulse 83 07/21/22 09:16 Resp 16 07/21/22 09:16 BP 109/80 07/21/22 09:16 Pulse Ox 96 07/21/22 09:16 O2 Flow Rate CV Function Including HR & BP: Stable Pain Control: Satisfactory Nausea & Vomiting: Negative Mental Status: Baseline Respiratory Status: Airway Patent Hydration Status: Satisfactory Anesthesia Complications: None
== END 2022-07-21 06:49 | disposition home or self-care (01) ==
LOC: SDS 06:48
PROVIDERS: ATTEND Ophthalmology
DX: H25.11 Age-related nuclear cataract, right eye (principal)
CPT/HCPCS: 66984; A9270; J3490; J7120

== ENCOUNTER 2022-09-08 06:41 | Day surgery (SDC) | payer MEDICARE, OTHER ==
[2022-09-08] MEDS ORDERED: LACTATED RINGERS 1,000 ML IV ONE ×2 (06:45→08:30)
[2022-09-08] MEDS ORDERED: MIDAZOLAM 2 MG/2 ML VIAL ONE ×2 (07:11→08:17)
[2022-09-08] MEDS ORDERED: EPINEPHrine 1 MG/ML AMP ONE (07:50)
[2022-09-08] MEDS ORDERED: TRIAMCIN/MOXIFLOX OPHTHALMIC 0.6 ML VIAL IO ONE ×2 (07:50→08:15)
[2022-09-08] MEDS ORDERED: BSS/LIDOCAINE/EPINEPHRINE 1 ML VIAL ONE (07:50)
[2022-09-08] MEDS ORDERED: VANCOMYCIN OPHTH (TOPICAL) 10 MG/ML SYRINGE ONE (07:50)
[2022-09-08] MEDS ORDERED: BRIMONIDINE 0.2% OPHTH DROPS 5 ML ONE (07:50)
[2022-09-08] MEDS ORDERED: TIMOLOL 0.5% OPHTH DROPS ONE (07:50)
--- NOTE | 2022-09-08 08:12 | ANESTHESIA ---
Pre-Anesthesia VS, & Labs - Diagnosis L cataract - Procedure L PhacoIOL Vital Signs: Temp Pulse Resp BP Pulse Ox O2 Flow Rate 36.4 C L 61 18 135/71 H 100 09/08/22 06:46 09/08/22 06:46 09/08/22 06:46 09/08/22 06:46 09/08/22 06:46 Height: 5 ft 2 in Weight (kg): 53.8 kg Body Mass Index: 21.7 BMI Classification: Normal - NPO >8 hours - Is Patient ?: No, Not Applicable Home Medications and Allergies Duloxetine HCl 60 mg PO DAILY 10/31/19 Acetaminophen [Tylenol] 325 mg PO PRN PRN 11/17/20 Amitriptyline [Elavil] 1 tab PO DAILY 07/20/22 Allergies/Adverse Reactions: Allergies Allergy/AdvReac Type Severity Reaction Status Date / Time No Known Drug Allergies Allergy Verified 07/20/22 12:19 Anes History & Medical History - Anesthetic History Anesthesia Complications: reports: No previous complications Family history of Anesthesia Complications: Denies Family history of Malignant Hyperthermia: Denies - Medical History Cardiovascular: reports: None Pulmonary: reports: None Gastrointestinal: reports: Hemorrhoids, Other Urinary: reports: None Neuro: reports: Other Musculoskeletal: reports: Other Endocrine/Autoimmune: reports: None Blood Disorders: reports: None Skin: reports: None Smoking Status: Never smoker - Surgical History General: reports: Bowel surgery, Colonoscopy, Other Orthopedic: reports: Amputation, Other Dermatologic: reports: Skin grafts Exam General: Alert, Oriented x3, Cooperative Dental: WNL Mouth Openin Fingerbreadth Neck Mobility: Normal Mallampati classification: II Thyromental Distance: 4-6 cm Respiratory: Lungs clear Cardiovascular: Regular rate Plan Anesthesia Type: MAC Consent for Procedure(s) Verified and Reviewed: Yes Code Status: Attempt Resuscitation ASA classification: 2-Mild systemic disease Is this case an emergency?: No
[2022-09-08] MEDS ORDERED: TIMOLOL 0.5% OPHTH DROPS OPTH ONE (08:14)
[2022-09-08] MEDS ORDERED: EPINEPHrine 1 MG/ML AMP IR ONE (08:14)
[2022-09-08] MEDS ORDERED: BRIMONIDINE 0.2% OPHTH DROPS 5 ML OPTH ONE (08:14)
[2022-09-08] MEDS ORDERED: BSS/LIDOCAINE/EPINEPHRINE 1 ML SYRINGE IO ONE (08:14)
[2022-09-08] MEDS ORDERED: VANCOMYCIN OPHTH (TOPICAL) 10 MG/ML SYRINGE TOP ONE (08:15)
[2022-09-08] MEDS ORDERED: PROPARACAINE 0.5% OPHTH DROPS 15 ML LEFTEYE ONE (08:15)
[2022-09-08] MEDS ORDERED: fentaNYL 100 MCG/2 ML VIAL ONE (08:18)
--- NOTE | 2022-09-08 08:36 | OPERATIVE REPORT ---
Operative Report - Other Other Information/Narrative: Date of Surgery: 09/08/22 Preop Dx: Visually significant cataract left eye. Cataract surgery was performed in the right eye on . Postop Dx: Same Procedure: Phacoemulsification with posterior chamber intraocular lens implant left eye Surgeon: Dr. 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 Best corrected visual acuity was 20/40 with glare to 20/80 vision in the left eye. Indications for surgery were: - Overall decrease in vision - Difficulty reading - Difficulty seeing words, closed captions, or game scores on TV - Difficulty seeing street signs - Difficulty driving in low light or at night - Difficulty driving at night because of headlights from other vehicles - Difficulty with glare or bright lights in any situation The patient was consented at length concerning the risks and benefits of cataract surgery after which the patient expressed a desire to proceed with surgery. Operative Procedure: The patient was taken into OR#3 and placed under monitored anesthesia care. A surgical time-out was conducted confirming correct patient, correct procedure, and correct surgical site. The patient was given topical anesthesia and then prepped and draped in the usual sterile fashion. The eye was entered at the 6 and 3 oclock positions. Intracameral Shugarcaine was injected into the anterior chamber followed by a dispersive viscoelastic. A continuous-tear curvilinear capsulorhexis was performed. The nucleus was hydrodissected and phacoemulsified. The cortex was evacuated using automated infusion and aspiration. A cohesive viscoelastic was injected into the capsular bag and a 21.5 diopter intraocular lens was inserted into the bag. Infusion and aspiration were used to evacuate the viscoelastic materials from the eye. The wounds were hydrated and the eye inflated to physiologic pressure using balanced salt solution. Approximately 0.25ml of a mixture of triamcinolone and moxifloxacin was injected trans-sclerally into the vitreous in the inferotemporal quadrant using a 30 gauge cannula. An additional 0.25ml of a mixture of triamcinolone and moxifloxacin was injected subconjunctivally in the superior quadrant for infection and inflammation prophylaxis. Wound integrity was checked with Weck-Sindy sponges. The patient was taken from the operating room in good condition and given post-op instructions.
[2022-09-08 09:07] VITALS: BP 112/69
--- NOTE | 2022-09-13 07:30 | ANESTHESIA POST OP EVALUATION ---
Anesthesia Post Eval - Post Anesthesia Eval Vitals: Last Vital Signs Temp 36.3 C L 09/08/22 09:30 Pulse 69 09/08/22 09:30 Resp 14 09/08/22 09:30 BP 112/69 09/08/22 09:30 Pulse Ox 100 09/08/22 09:30 O2 Flow Rate CV Function Including HR & BP: Stable Pain Control: Satisfactory Nausea & Vomiting: Negative Mental Status: Baseline Respiratory Status: Airway Patent Hydration Status: Satisfactory Anesthesia Complications: None
== END 2022-09-08 06:42 | disposition home or self-care (01) ==
LOC: SDS 06:41
PROVIDERS: ATTEND Ophthalmology
DX: H25.12 Age-related nuclear cataract, left eye (principal); Z98.41 Cataract extraction status, right eye
CPT/HCPCS: 66984; A9270; J3490; J7120

== ENCOUNTER 2023-01-26 08:58 | Outpatient (CLI) | payer MEDICARE, OTHER ==
[2023-01-26 14:29] LABS: ALBUMIN 4.2 g/dL (3.2-5.5); ALBUMIN/GLOBULIN RATIO 1.6 (1.0-2.2); BILIRUBIN,TOTAL 0.7 mg/dL (0.2-1.0); CALCIUM 9.4 mg/dL (8.5-10.3); CREATININE 0.7 mg/dL (0.6-1.3); MAGNESIUM 1.9 mg/dL (1.7-2.3); POTASSIUM 4.5 mmol/L (3.5-4.5); TOTAL PROTEIN 6.8 g/dL (6.4-8.9)
== END 2023-01-26 08:59 | disposition home or self-care (01) ==
LOC: LAB.S 08:58
PROVIDERS: ATTEND Nurse Practitioner
DX: R25.2 Cramp and spasm (principal); G54.6 Phantom limb syndrome with pain; Z79.899 Other long term (current) drug therapy; R41.3 Other amnesia
CPT/HCPCS: 36415; 80053; 83735

== ENCOUNTER 2023-04-04 10:34 | Outpatient (CLI) | payer MEDICARE, OTHER ==
[2023-04-04 15:04] LABS: BASOPHILS # (AUTO) 0.1 10^3/uL (0.0-0.1); BASOPHILS % (AUTO) 1.2 %; EOSINOPHILS # (AUTO) 0.1 10^3/uL (0.0-0.7); EOSINOPHILS % (AUTO) 1.9 %; HCT - HEMATOCRIT 41.8 % (37.0-47.0); HGB - HEMOGLOBIN 13.6 g/dL (12.0-16.0); LYMPHOCYTES # (AUTO) 1.3 10^3/uL (1.5-3.5); LYMPHOCYTES % (AUTO) 30.7 %; MEAN CORPUSCULAR HEMOGLOBIN 30.4 pg (27.0-31.0); MEAN CORPUSCULAR HGB CONC 32.5 g/dL (32.0-36.0); MEAN CORPUSCULAR VOLUME 93.3 fL (81.0-99.0); MEAN PLATELET VOLUME 10.1 fL (7.9-10.8); MONOCYTES # (AUTO) 0.3 10^3/uL (0.0-1.0); MONOCYTES % (AUTO) 7.6 %; NEUTROPHILS # (AUTO) 2.5 10^3/uL (1.5-6.6); NEUTROPHILS % (AUTO) 58.4 %; PLT - PLATELET COUNT 293 10^3/uL (130-450); RED BLOOD COUNT 4.48 10^6/uL (4.20-5.40); RED CELL DISTRIBUTION WIDTH 12.8 % (12.0-15.0); WHITE BLOOD COUNT 4.2 x10^3/uL (4.8-10.8)
[2023-04-04 15:43] LABS: THYROID STIMULATING HORMONE 1.31 uIU/mL (0.34-5.60)
[2023-04-04 16:00] LABS: ALBUMIN 4.3 g/dL (3.2-5.5); ALBUMIN/GLOBULIN RATIO 1.7 (1.0-2.2); ALKALINE PHOSPHATASE 116 IU/L (42-121); ALT ALANINE AMINOTRANSFERASE 29 IU/L (10-60); AST ASPARTATE AMINOTRANSFERASE 32 IU/L (10-42); BILIRUBIN,TOTAL 0.9 mg/dL (0.2-1.0); BUN - BLOOD UREA NITROGEN 17 mg/dL (6-20); CALCIUM 9.3 mg/dL (8.5-10.3); CARBON DIOXIDE - CO2 28 mmol/L (21-32); CHLORIDE 107 mmol/L (101-111); CHOL/HDL RATIO 3.3 (<4.4); CHOLESTEROL 204 mg/dL; CREATININE 0.6 mg/dL (0.6-1.3); GFR - MDRD 99 (>89); GLUCOSE 95 mg/dL (74-104); HDL CHOLESTEROL 62 mg/dL; LDL CHOLESTEROL,CALCULATED 129 mg/dL; LDL/HDL RATIO 2.1 (<4.4); POTASSIUM 4.8 mmol/L (3.5-4.5); SODIUM 140 mmol/L (135-145); TOTAL PROTEIN 6.9 g/dL (6.4-8.9); TRIGLYCERIDES 67 mg/dL (48-352); VLDL CHOLESTEROL 13 mg/dL
== END 2023-04-04 10:35 | disposition home or self-care (01) ==
LOC: LAB.S 10:34
PROVIDERS: ATTEND Registered Nurse
DX: Z79.899 Other long term (current) drug therapy (principal); Z13.220 Encounter for screening for lipoid disorders
CPT/HCPCS: 36415; 80053; 80061; 83721; 84443; 85025

== ENCOUNTER 2023-04-26 07:43 | Outpatient (CLI) | payer MEDICARE, OTHER ==
[2023-04-26 14:46] LABS: BASOPHILS % (AUTO) 0.9 %; EOSINOPHILS # (AUTO) 0.2 10^3/uL (0.0-0.7); EOSINOPHILS % (AUTO) 3.7 %; HGB - HEMOGLOBIN 13.6 g/dL (12.0-16.0); LYMPHOCYTES # (AUTO) 1.4 10^3/uL (1.5-3.5); LYMPHOCYTES % (AUTO) 31.2 %; MEAN CORPUSCULAR HEMOGLOBIN 30.4 pg (27.0-31.0); MEAN CORPUSCULAR HGB CONC 32.4 g/dL (32.0-36.0); MEAN PLATELET VOLUME 10.1 fL (7.9-10.8); MONOCYTES # (AUTO) 0.4 10^3/uL (0.0-1.0); MONOCYTES % (AUTO) 8.1 %; NEUTROPHILS # (AUTO) 2.4 10^3/uL (1.5-6.6); NEUTROPHILS % (AUTO) 55.9 %; PLT - PLATELET COUNT 291 10^3/uL (130-450); RED BLOOD COUNT 4.47 10^6/uL (4.20-5.40); RED CELL DISTRIBUTION WIDTH 13.1 % (12.0-15.0); WHITE BLOOD COUNT 4.3 x10^3/uL (4.8-10.8)
[2023-04-26 15:35] LABS: ALBUMIN 4.4 g/dL (3.2-5.5); ALBUMIN/GLOBULIN RATIO 1.9 (1.0-2.2); ALKALINE PHOSPHATASE 114 IU/L (42-121); ALT ALANINE AMINOTRANSFERASE 18 IU/L (10-60); AST ASPARTATE AMINOTRANSFERASE 24 IU/L (10-42); BILIRUBIN,TOTAL 0.7 mg/dL (0.2-1.0); BUN - BLOOD UREA NITROGEN 16 mg/dL (6-20); CALCIUM 9.7 mg/dL (8.5-10.3); CARBON DIOXIDE - CO2 30 mmol/L (21-32); CHLORIDE 105 mmol/L (101-111); CHOL/HDL RATIO 3.5 (<4.4); CHOLESTEROL 214 mg/dL; CREATININE 0.7 mg/dL (0.6-1.3); GFR - MDRD 83 (>89); GLUCOSE 104 mg/dL (74-104); HDL CHOLESTEROL 62 mg/dL; LDL CHOLESTEROL,CALCULATED 133 mg/dL; LDL/HDL RATIO 2.1 (<4.4); POTASSIUM 4.5 mmol/L (3.5-4.5); SODIUM 141 mmol/L (135-145); TOTAL PROTEIN 6.7 g/dL (6.4-8.9); TRIGLYCERIDES 96 mg/dL (48-352); VLDL CHOLESTEROL 19 mg/dL
[2023-04-26 15:40] LABS: THYROID STIMULATING HORMONE 0.99 uIU/mL (0.34-5.60)
== END 2023-04-26 07:44 | disposition home or self-care (01) ==
LOC: LAB.S 07:43
PROVIDERS: ATTEND Registered Nurse
DX: Z79.899 Other long term (current) drug therapy (principal); Z13.220 Encounter for screening for lipoid disorders
CPT/HCPCS: 36415; 80053; 80061; 83721; 84443; 85025

== ENCOUNTER 2023-08-16 13:01 | Outpatient (CLI) | payer MEDICARE, OTHER ==
--- NOTE | 2023-08-16 13:49 | CT Report ---
PROCEDURE: Head WO INDICATIONS: MEMORY LOSS TECHNIQUE: Noncontrast 4.5 mm thick angled axial sections acquired from the foramen magnum to the vertex. For r adiation dose reduction, the following was used: automated exposure control, adjustment of mA and/or kV according to patient size. COMPARISON: None. FINDINGS: Image quality: Excellent. CSF spaces: Basal cisterns are patent. No extra-axial fluid collections. Ventricles are normal in size and shape. Brain: No midline shift. No intracranial masses or hemorrhage. Age-related global volume loss and chronic microvascular ischemic changes. Intracranial atherosclerotic vascular calcifications. Mahan-w reny matter interface is normal. Skull and face: Calvarium and visualized facial bones are intact, without suspicious lesions. Sinuses: Visualized sinuses and mastoids are clear. IMPRESSION: No acute intracranial pathology. Reviewed by: Almas Willson MD on 08/16/2023 1:47 PM PDT Approved by: Almas Willson MD on 08/16/2023 1:47 PM PDT Station ID: [id number]
== END 2023-08-16 13:02 | disposition home or self-care (01) ==
LOC: DI 13:01
PROVIDERS: ATTEND Registered Nurse
DX: R41.3 Other amnesia (principal)

== ENCOUNTER 2023-11-07 09:45 | Outpatient (CLI) | payer MEDICARE, OTHER ==
[2023-11-07 14:57] LABS: BASOPHILS % (AUTO) 0.9 %; EOSINOPHILS # (AUTO) 0.1 10^3/uL (0.0-0.7); EOSINOPHILS % (AUTO) 2.3 %; HCT - HEMATOCRIT 40.1 % (37.0-47.0); HGB - HEMOGLOBIN 13.2 g/dL (12.0-16.0); LYMPHOCYTES # (AUTO) 1.2 10^3/uL (1.5-3.5); LYMPHOCYTES % (AUTO) 28.5 %; MEAN CORPUSCULAR HEMOGLOBIN 30.3 pg (27.0-31.0); MEAN CORPUSCULAR HGB CONC 32.9 g/dL (32.0-36.0); MONOCYTES # (AUTO) 0.3 10^3/uL (0.0-1.0); MONOCYTES % (AUTO) 7.5 %; NEUTROPHILS # (AUTO) 2.6 10^3/uL (1.5-6.6); NEUTROPHILS % (AUTO) 60.6 %; PLT - PLATELET COUNT 297 10^3/uL (130-450); RED BLOOD COUNT 4.36 10^6/uL (4.20-5.40); RED CELL DISTRIBUTION WIDTH 13.6 % (12.0-15.0); WHITE BLOOD COUNT 4.3 x10^3/uL (4.8-10.8)
[2023-11-07 15:49] LABS: ALBUMIN 4.3 g/dL (3.2-5.5); ALBUMIN/GLOBULIN RATIO 1.7 (1.0-2.2); ALKALINE PHOSPHATASE 106 IU/L (42-121); ALT ALANINE AMINOTRANSFERASE 32 IU/L (10-60); AST ASPARTATE AMINOTRANSFERASE 37 IU/L (10-42); BUN - BLOOD UREA NITROGEN 14 mg/dL (6-20); CALCIUM 9.6 mg/dL (8.5-10.3); CARBON DIOXIDE - CO2 30 mmol/L (21-32); CHLORIDE 105 mmol/L (101-111); CHOL/HDL RATIO 3.1 (<4.4); CHOLESTEROL 233 mg/dL; CREATININE 0.7 mg/dL (0.6-1.3); GFR - MDRD 83 (>89); GLUCOSE 91 mg/dL (74-104); HDL CHOLESTEROL 74 mg/dL; LDL CHOLESTEROL,CALCULATED 145 mg/dL; POTASSIUM 4.3 mmol/L (3.5-4.5); SODIUM 140 mmol/L (135-145); TOTAL PROTEIN 6.9 g/dL (6.4-8.9); TRIGLYCERIDES 72 mg/dL (48-352); VLDL CHOLESTEROL 14 mg/dL
[2023-11-07 15:58] LABS: THYROID STIMULATING HORMONE 1.77 uIU/mL (0.34-5.60)
== END 2023-11-07 09:46 | disposition home or self-care (01) ==
LOC: LAB.S 09:45
PROVIDERS: ATTEND Registered Nurse
DX: Z13.228 Encounter for screening for other metabolic disorders (principal); Z13.220 Encounter for screening for lipoid disorders; Z13.29 Encounter for screening for other suspected endocrine disorder; Z13.0 Encounter for screening for diseases of the blood and blood-forming organs and certain disorders involving the immune mechanism
CPT/HCPCS: 36415; 80053; 80061; 83721; 84443; 85025

== ENCOUNTER 2024-01-31 14:19 | Outpatient (CLI) | payer MEDICARE, OTHER ==
--- NOTE | 2024-01-31 21:44 | CT Report ---
PROCEDURE: Head WO INDICATIONS: MEMORY LOSS TECHNIQUE: Noncontrast 4.5 mm thick angled axial sections acquired from the foramen magnum to the vertex. For r adiation dose reduction, the following was used: automated exposure control, adjustment of mA and/or kV according to patient size. COMPARISON: CT head 08/16/2023 FINDINGS: Image quality: Excellent. The ventricular system and cortical sulci demonstrate atrophy, consistent for patient's stated age. There are areas of hypodensity in the periventricular and subcortical white matter. There is no acut e intra or extra-axial fluid collection. No acute hemorrhage, mass lesion or midline shift. Brainst em is unremarkable. Globes are symmetrical. Sinuses are aerated. Osseous structures are intact. IMPRESSION: 1. No acute intracranial process. 2. Mild atrophy and chronic microvascular ischemic changes. Reviewed by: Rhina Balderrama MD on 01/31/2024 9:43 PM PDT Approved by: Rhina Balderraam MD on 01/31/2024 9:43 PM PDT Station ID: [id number]
== END 2024-01-31 14:20 | disposition home or self-care (01) ==
LOC: DI 14:19
PROVIDERS: ATTEND Registered Nurse
DX: R41.3 Other amnesia (principal); Z72.89 Other problems related to lifestyle